=== PATIENT | male | born 1960 | race Caucasian/White ===

== ENCOUNTER 2016-09-15 16:46 | Inpatient (IN) ==
--- NOTE | 2016-09-15 17:44 | Emergency Department Note ---
Disposition Clinical Impression: Foreign body foot/toe, Elevated liver enzymes Cellulitis Qualifiers: Site of cellulitis: extremity Site of cellulitis of extremity: lower extremity Laterality: left Qualified Code(s): L03.116 - Cellulitis of left lower limb Disposition: Admitted As Inpatient General Adult [facility] - General Chief complaint: ED Extremity Injury, Lower Stated complaint: glass in L foot Time Seen by Provider: 09/15/16 17:42 Source: patient - History of Present Illness Pain Scale: 10 - Related Data Home Medications Medication Instructions Recorded Confirmed Armodafinil [Nuvigil] 250 mg PO QAM 07/26/16 07/26/16 Aspirin 81 mg PO DAILY 07/26/16 07/26/16 Gabapentin [Neurontin] 300 mg PO 1200 07/26/16 07/26/16 Gabapentin [Neurontin] 600 mg PO QAM AND QHS 07/26/16 07/26/16 Oxcarbazepine 300 mg PO DAILY 07/26/16 07/26/16 Venlafaxine XR (24 HR) [Effexor Xr] 150 mg PO DAILY 07/26/16 07/26/16 Previous Rx's Medication Instructions Recorded Albuterol Sulfate [Albuterol 1 puff IH Q6HR PRN #1 hfa.aer.ad 07/30/16 Inhaler] Benzonatate [Tessalon] 200 mg PO TID PRN #30 capsule 07/30/16 Cephalexin [Keflex] 500 mg PO TID #24 capsule 07/30/16 Docusate [Colace] 100 mg PO BID PRN #40 capsule 07/30/16 Nicotine Patch [Nicoderm] 21 mg TD DAILY #30 patch.td24 07/30/16 Oxycodone HCl/Acetaminophen 1 each PO Q6H PRN #28 tablet 07/30/16 [Percocet 10-325 mg Tablet] Allergies Allergy/AdvReac Type Severity Reaction Status Date / Time No Known Allergies Allergy Verified 09/15/16 16:55 Past Medical History - Past Medical History Medical history: Reports: arthritis, COPD, CVA, GERD, hyperlipidemia, hypertension, osteoporosis, TIA, other Surgical history: Reports: other (Esophagogastroduodenoscopy) Psychiatric history: Reports: no psych history, anxiety, depression, prior suicide attempt, previous psychiatric hospitalization, other - Social History Smoking Status: Current every day smoker Smokeless Tobacco Status: No Alcohol use: Reports: rarely Drug use: Reports: none Physical Exam - General General appearance: alert, in no apparent distress Course Vital Signs Temperature 97.7 F 09/15/16 16:52 Pulse Rate 83 09/15/16 16:52 Respiratory Rate 16 09/15/16 16:52 Blood Pressure 121/81 09/15/16 16:52 O2 Sat by Pulse Oximetry 100 09/15/16 16:52 Temperature 97.7 F 09/15/16 16:52 Pulse Rate 83 09/15/16 16:52 Respiratory Rate 16 09/15/16 16:52 Blood Pressure 121/81 09/15/16 16:52 O2 Sat by Pulse Oximetry 100 09/15/16 16:52 Oxygen Delivery Oxygen Delivery Room Air Medical Decision Making - Lab Data Result diagrams: 09/15/16 18:09 09/15/16 18:09 Lab Results 09/15/16 09/15/16 09/15/16 Range/Units 18:09 18:09 18:09 WBC 5.7 (4.3-11.1) K/mcL RBC 5.24 (4.19-5.50) M/mcL Hgb 15.3 (12.9-16.9) g/dL Hct 45.8 (37.5-50.1) % MCV 87.4 (83.0-100.0) fL MCH 29.2 (28.0-33.3) pg MCHC 33.4 (31.6-35.5) g/dL RDW 14.8 H (11.5-14.5) % Plt Count 166 (140-400) K/mcL MPV 10.2 (9.4-12.4) fL Immature Gran % 0.2 (0-4) % Seg Neutrophils % 75.4 % Lymphocytes % 14.3 % Monocytes % 9.1 % Eosinophils % 0.5 % Basophils % 0.5 % Neutrophils # 4.3 (1.6-8.9) K/mcL Lymphocytes # 0.8 (0.6-4.6) K/mcL Monocytes # 0.5 (0.0-1.3) K/mcL Eosinophils # 0.0 (0.0-0.6) K/mcL Basophils # 0.0 (0.0-0.2) K/mcL PT 13.3 H (9.4-12.1) Seconds INR 1.2 APTT 31.8 (26.0-36.0) Seconds Sodium 137 (136-145) mEq/L Potassium 3.7 (3.5-4.5) mEq/L Chloride 101 (98-109) mEq/L Carbon Dioxide 28 (19-29) mEq/L BUN 16 (8-26) mg/dL Creatinine 0.88 (0.72-1.25) mg/dL Est GFR ( Amer) > 60 (> 60) Est GFR (Non-Af Amer) > 60 (> 60) BUN/Creatinine Ratio 18 (6-26) Glucose 151 H (70-99) mg/dL Calculated Osmolality 288 (280-300) Calcium 8.9 (8.6-10.8) mg/dL Total Bilirubin 1.8 H (0.2-1.2) mg/dL AST 466 H (5-34) Units/L ALT 708 H (0-55) Units/L Alkaline Phosphatase 212 H (38-126) Units/L Serum Total Protein 7.4 (6.0-8.3) g/dL Albumin 3.7 (3.5-5.0) g/dL Globulin 3.7 H (2.4-3.5) g/dL Albumin/Globulin Ratio 1.0 L (1.1-2.2) Attestation Statement - Attestation Attestation: I examined this patient and my medical decision-making was reviewed with the [facility] STORAGE ARCHITECT/PA/Advanced Practice Nurse/Resident Physician. I agree with the documented findings, disposition and treatment plan as described except to the extent set forth below. [id number] time provided Patient presents in a wheelchair complaining of left foot pain and swelling. He states he underwent surgery to remove a foreign body on 07/28/16. He returns complaining of increased pain and swelling. Imaging study reveals a retained foreign body. Cellulitis on exam 18:59: I spoke with Dr. Mendez by telephone to process a consult after admission. Antibiotics started. Patient admitted to the medicine service. His liver function tests are elevated with the patient denies taking Tylenol. He denies right upper quadrant pain. He is not jaundiced. He denies alcohol ingestion. Labs can be trended and followed by the medicine team after admission
--- NOTE | 2016-09-15 18:06 | Emergency Department Note ---
Disposition Clinical Impression: Foreign body foot/toe Cellulitis Qualifiers: Site of cellulitis: extremity Site of cellulitis of extremity: lower extremity Laterality: left Qualified Code(s): L03.116 - Cellulitis of left lower limb Disposition: Admitted As Inpatient Lower Extremity Injury HPI - General Chief Complaint: ED Extremity Injury, Lower Stated Complaint: glass in L foot Time Seen by Provider: 09/15/16 17:42 Source: patient Nursing Notes Reviewed: Yes Vital Signs Reviewed: Yes - History of Present Illness HPI Narrative: Mr. Mason, a 56yo male, presents from home by POV with CC: left foot pain. Onset Friday. The swelling on the plantar surface of his left foot has progressed and become increasingly painful. Erythema has spread to now include majority of his forefoot. He admits to chills today. In July, patient stepped on a piece of glass was operated La[place] morning by Dr. vega. PMH: Hypertension, remote CVA with sequelae of left-sided weakness. Admits: Chills, leg pain, history taking from body left foot. Eyes: Fever, nausea, swelling or streaking of his left leg. - Related Data Home Medications Medication Instructions Recorded Confirmed Armodafinil [Nuvigil] 250 mg PO QAM 07/26/16 07/26/16 Aspirin 81 mg PO DAILY 07/26/16 07/26/16 Gabapentin [Neurontin] 300 mg PO 1200 07/26/16 07/26/16 Gabapentin [Neurontin] 600 mg PO QAM AND QHS 07/26/16 07/26/16 Oxcarbazepine 300 mg PO DAILY 07/26/16 07/26/16 Venlafaxine XR (24 HR) [Effexor Xr] 150 mg PO DAILY 07/26/16 07/26/16 Previous Rx's Medication Instructions Recorded Albuterol Sulfate [Albuterol 1 puff IH Q6HR PRN #1 hfa.aer.ad 07/30/16 Inhaler] Benzonatate [Tessalon] 200 mg PO TID PRN #30 capsule 07/30/16 Cephalexin [Keflex] 500 mg PO TID #24 capsule 07/30/16 Docusate [Colace] 100 mg PO BID PRN #40 capsule 07/30/16 Nicotine Patch [Nicoderm] 21 mg TD DAILY #30 patch.td24 07/30/16 Oxycodone HCl/Acetaminophen 1 each PO Q6H PRN #28 tablet 07/30/16 [Percocet 10-325 mg Tablet] Allergies Allergy/AdvReac Type Severity Reaction Status Date / Time No Known Allergies Allergy Verified 09/15/16 16:55 All systems ED: reviewed and negative except as stated. (as per HPI) Past Medical History - Past Medical History Medical history: Reports: arthritis, COPD, CVA, GERD, hyperlipidemia, hypertension, osteoporosis, TIA, other Surgical history: Reports: other (Esophagogastroduodenoscopy) Psychiatric history: Reports: no psych history, anxiety, depression, prior suicide attempt, previous psychiatric hospitalization, other - Social History Smoking Status: Current every day smoker Smokeless Tobacco Status: No Alcohol use: Reports: rarely Drug use: Reports: none Physical Exam General: Patient is alert, oriented, and in no acute distress. HEENT: No facial asymmetry. Head is normocephalic and atraumatic. Cardiovascular: Heart regular rate and rhythm without clicks, rubs, gallops, or murmurs. No JVD. PMI nondisplaced. Respiratory: Symmetric chest rise with good respiratory effort. Bilateral breath sounds are clear without wheezing, crackles, or rhonchi. Musculoskeletal: Left forefoot swollen on plantar surface with central pallor and surrounding erythema. Erythema extends to the dorsum of the forefoot. No streaking. Dorsalis pedis and posterior tibial pulse intact in the left foot. Psych: Patient's affect is appropriate for situation. - General General appearance: alert, in no apparent distress Course Course Narrative: Surgery performed Jul by Dr. Vega. Will request Xray and draw basic labs including coags. XRay left foot shows retained foreign body. 18:00 My attending spoke with Dr. Mendez. He agrees to see the patient as consult. 18:05 Spoke with the admitting hospitalist consult has already been placed for Dr. Mendez who anticipates operation tomorrow. We will begin empiric antibodies for gram-positive and Pseudomonas coverage Vital Signs Temperature 97.7 F 09/15/16 16:52 Pulse Rate 83 09/15/16 16:52 Respiratory Rate 16 09/15/16 16:52 Blood Pressure 121/81 09/15/16 16:52 O2 Sat by Pulse Oximetry 100 09/15/16 16:52 Temperature 97.7 F 09/15/16 16:52 Pulse Rate 83 09/15/16 16:52 Respiratory Rate 16 09/15/16 16:52 Blood Pressure 121/81 09/15/16 16:52 O2 Sat by Pulse Oximetry 100 09/15/16 16:52 Oxygen Delivery Oxygen Delivery Room Air Extremity Injury, Lower - Lab Data Result diagrams: 09/15/16 18:09 Lab Results 09/15/16 09/15/16 Range/Units 18:09 18:09 WBC 5.7 (4.3-11.1) K/mcL RBC 5.24 (4.19-5.50) M/mcL Hgb 15.3 (12.9-16.9) g/dL Hct 45.8 (37.5-50.1) % MCV 87.4 (83.0-100.0) fL MCH 29.2 (28.0-33.3) pg MCHC 33.4 (31.6-35.5) g/dL RDW 14.8 H (11.5-14.5) % Plt Count 166 (140-400) K/mcL MPV 10.2 (9.4-12.4) fL Immature Gran % 0.2 (0-4) % Seg Neutrophils % 75.4 % Lymphocytes % 14.3 % Monocytes % 9.1 % Eosinophils % 0.5 % Basophils % 0.5 % Neutrophils # 4.3 (1.6-8.9) K/mcL Lymphocytes # 0.8 (0.6-4.6) K/mcL Monocytes # 0.5 (0.0-1.3) K/mcL Eosinophils # 0.0 (0.0-0.6) K/mcL Basophils # 0.0 (0.0-0.2) K/mcL PT 13.3 H (9.4-12.1) Seconds INR 1.2 APTT 31.8 (26.0-36.0) Seconds
[2016-09-15] MEDS ORDERED: Vancomycin 1,000 MG in D5% in Water 250 ML IVPB ONE (18:14)
[2016-09-15 18:41] LABS: Basophils % 0.5 %; Eosinophils % 0.5 %; Hematocrit 45.8 % (37.5-50.1); Hemoglobin 15.3 g/dL (12.9-16.9); Immature Granulocytes % 0.2 % (0-4); Lymphocytes # 0.8 K/mcL (0.6-4.6); Lymphocytes % 14.3 %; Mean Corpuscular HGB Conc 33.4 g/dL (31.6-35.5); Mean Corpuscular Hemoglobin 29.2 pg (28.0-33.3); Mean Corpuscular Volume 87.4 fL (83.0-100.0); Mean Platelet Volume 10.2 fL (9.4-12.4); Monocytes # 0.5 K/mcL (0.0-1.3); Monocytes % 9.1 %; Neutrophils # 4.3 K/mcL (1.6-8.9); Platelet Count 166 K/mcL (140-400); Red Blood Count 5.24 M/mcL (4.19-5.50); Red Cell Distribution Width 14.8 % (11.5-14.5); Segmented Neutrophils % 75.4 %
[2016-09-15 18:46] LABS: INR 1.2; Prothrombin Time 13.3 Seconds (9.4-12.1)
[2016-09-15 18:49] LABS: Activated Partial Thrombo Time 31.8 Seconds (26.0-36.0)
[2016-09-15 18:57] LABS: Alanine Aminotransferase 708 Units/L (0-55); Albumin 3.7 g/dL (3.5-5.0); Alkaline Phosphatase 212 Units/L (38-126); Aspartate Amino Transferase 466 Units/L (5-34); BUN/Creatinine Ratio 18 (6-26); Bilirubin,Total 1.8 mg/dL (0.2-1.2); Blood Urea Nitrogen 16 mg/dL (8-26); Calcium 8.9 mg/dL (8.6-10.8); Carbon Dioxide 28 mEq/L (19-29); Chloride 101 mEq/L (98-109); Globulin 3.7 g/dL (2.4-3.5); Glucose 151 mg/dL (70-99); Osmolality,Calculated 288 (280-300); Potassium 3.7 mEq/L (3.5-4.5); Sodium 137 mEq/L (136-145); Total Protein 7.4 g/dL (6.0-8.3); eGFR For African Americans > 60 (> 60); eGFR For Non-African Americans > 60 (> 60)
[2016-09-15] MEDS ORDERED: Naloxone 0.4 MG/ML INJ IVP PRN (22:02)
[2016-09-15] MEDS ORDERED: Ondansetron 4 MG/2 ML VIAL IVP PRN (22:02)
[2016-09-15] MEDS ORDERED: Acetaminophen 325 MG TABLET PO PRN (22:02)
--- NOTE | 2016-09-15 22:28 | Internal Med History&Physical ---
<Yen Howe - Last Filed: 09/16/16 00:34> Date of Encounter: 09/16/16 Time of Encounter: 22:00 Assessment and Plan (1) Foreign body foot/toe Current visit: Yes Status: Acute 1 patient had previous foreign body in July surgical removal. Had uneventful postop recovery. Friday patient began to experience edema and erythema to left foot. He is unable to bear weight this time. X-rays left foot did reveal small radiopaque foreign body. Consulted podiatry he will surgically remove foreign body in a.m. 2. Antibiotic coverage patient given vancomycin as well as Zosyn. 3. After midnight for surgery in a.m. 4 morphine as needed for pain (2) Elevated liver enzymes Current visit: Yes Status: Acute 1 patient had elevated liver enzymes when reviewed. It appears that in July liver enzymes were within normal limits. Patient denies any history of cirrhosis or hepatitis. Denies any Tylenol use. States that he was on statin which he stopped taking. We will recheck LFTs in a.m. 2 obtain ultrasound of gallbladder and liver 3 hepatitis panel (3) DVT prophylaxis Current visit: No Status: Acute 1 Lovenox (4) History of CVA (cerebrovascular accident) Current visit: Yes Status: Acute 1 history of CVA with left-sided weakness. Patient states he is on aspirin every was stopped taking his statin. He has elevated liver enzymes will check lipid panel in a.m. continue to hold statin (5) JANNA on CPAP Current visit: Yes Status: Acute 1 we will continue with CPAP (6) Tobacco use Current visit: Yes Status: Acute 1. Patient stop smoking nicotine patch (7) Hypertension Current visit: Yes Status: Acute 1 BP presently controlled. We will monitor Qualifiers: Hypertension type: essential hypertension Qualified Code(s): I10 - Essential (primary) hypertension Internal Medicine - H&P: HPI Chief complaint: Swelling of left foot Admitted From: Emergency Dept Plans for Post Hospital Care: Home History of present illness: Mr. Mason is a 56 year old male past medical history of hypertension and CVA with left-sided weakness hypertension and JANNA hyperlipidemia tobacco abuse. According the patient in July he stepped on a piece of glass was operated on 07/28/[address] torres. Formerly was removed his recovery was uneventful. This Friday the patient noted swelling the plantar surface of his left foot and it progressively worsened and became increasingly painful. He did not been able to her weight on his left leg he attempted to soak his foot in Epsom salt with relief. Erythema has spread over majority of his forefoot and had become increasingly edematous. He did experience some chills today however denies any fever or shortness of breath cough or chest pain nausea vomiting or diarrhea. He presented to the ER with the above complaints. According to ER records patient's lab workup negative for leukocytosis chemistry is unremarkable. It is noted that patient had an elevated AST of 466 AL T708 total bilirubin 1.8 alkaline phosphatase 212. This this elevation seems to be new as lab work 07/26 2016 revealed normal levels. Patient denies any history of Tylenol consumption he is not taking a statin denies any history of cirrhosis or hepatitis. X-ray of left foot revealed a small radiopaque foreign body in soft tissue plantar. ER physician contacted podiatry Dr. Mendez who agreed to see patient as a consult. The patient was given empiric antibiotics vancomycin and cefepime in the ER. He is admitted for further workup and evaluation. At present time the patient denies any pain or discomfort. he is hemodynamically stable.. I reviewed this case with who agrees with plan Past Med Surg Social Fam HX - Past Medical History Medical history: arthritis, COPD, CVA, GERD, hyperlipidemia, hypertension, kidney stones, osteoporosis, TIA, other Psychiatric history: no psych history, anxiety, depression, prior suicide attempt, previous psychiatric hospitalization, other - Past Surgical History Surgical History: other - Social History Smoking Status: Current every day smoker Packs per day: 1/2 Smokeless Tobacco Status: No Alcohol use: rarely Drug use: none - Family History Mother Living Status: Hx Family Cardiac Disorders: Yes Brother Living Status: Still Living Hx Family Cancer: Yes Internal Medicine - H&P: Meds Aspirin 81 mg PO DAILY 07/26/16 [History] Gabapentin [Neurontin] 300 mg PO 1200 07/26/16 [History] Gabapentin [Neurontin] 600 mg PO QAM AND QHS 07/26/16 [History] Venlafaxine XR (24 HR) [Effexor Xr] 150 mg PO DAILY 07/26/16 [History] Nicotine Patch [Nicoderm] 21 mg TD DAILY #30 patch.td24 07/30/16 [Rx] Allergies No Known Allergies Allergy (Verified 09/15/16 16:55) All Systems PM: A 10-system review of systems was performed and is negative for pertinent findings except as documented above in the HPI. - Constitutional Constitutional: no chills, no fever(s), no night sweats - EENT Eyes: no change in vision, no discharge, no pain, no photophobia - Cardiovascular Cardiovascular ROS IM: no chest pain, no diaphoresis, no dyspnea, no lightheadedness, no palpitations, no syncope - Respiratory Respiratory: no cough, no dyspnea, no wheezing, no excessive phlegm production - Gastrointestinal Gastrointestinal: no abdominal pain, no diarrhea, no hematemesis, no hematochezia, no melena, no nausea, no vomiting - Musculoskeletal Additional comments: Swelling erythremia to left foot - Integumentary Integumentary IM: erythema - Neurological Neurological ROS: no confusion, no convulsions, no focal weakness, no numbness, no tingling, no tremor(s) - Constitutional Vitals: Temp Pulse Resp BP Pulse Ox 98.5 F 81 16 110/77 97 09/15/16 20:03 09/15/16 20:03 09/15/16 20:03 09/15/16 20:03 09/15/16 20:03 General appearance: Present: A&O X 3 - Head Head exam: Present: atraumatic, normocephalic - Eye Eye exam: Present: PERRL, conjuntiva pink, sclera anicteric Pupils: Present: PERRL - Neck Neck exam general surgery: Present: supple, trachea midline. Absent: lymphadenopathy - Respiratory Respiratory exam: Present: CTAB. Absent: accessory muscle use, rales, rhonchi, wheezes - Cardiovascular Cardiovascular exam: Present: RRR, +S1, +S2. Absent: diastolic murmur, gallop, rubs, systolic murmur - GI/Abdominal GI/Abdominal exam: Present: normal bowel sounds, soft, no peritoneal signs. Absent: distended, tenderness - Extremities Exam Extremities exam: Present: warm, radial pulses palpable and symetrical. Absent : calf tenderness, cyanotic, pedal edema - Expanded Lower Extremities Exam Foot/Toe exam: Present: erythema, puncture wound, swelling, tenderness - Neurological Exam Neurological exam: Present: CN II-XII intact, oriented X3, no focal deficits. Absent: pronater drift, facial droop, speech deficit - Skin Skin exam: Present: dry, intact Internal Med - H&P Results - Labs CBC & Chem 7: 09/15/16 18:09 09/15/16 18:09 - Diagnostic Studies Other Images Additional comments: Per radiology read left foot x-ray. Redemonstration small 4 mm radio opaque foreign body in the soft tissue plantar to the second proximal phalanx No acute osseous abnormality <Susan Helton - Last Filed: 09/16/16 02:18> Date of Encounter: 09/15/16 Internal Medicine - H&P: HPI History of present illness: Mr. Mason is a 56 year old male All Systems PM: A 10-system review of systems was performed and is negative for pertinent findings except as documented above in the HPI. - Constitutional Vitals: Temp Pulse Resp BP Pulse Ox 98.4 F 91 18 98/49 93 L 09/16/16 00:05 09/16/16 00:05 09/16/16 00:05 09/16/16 00:05 09/16/16 00:05 Internal Med - H&P Results - Labs CBC & Chem 7: 09/15/16 18:09 09/15/16 18:09 - Attending Attestation I examined this patient and my medical decision-making was reviewed with the MANAGING EDITOR/PA/Advanced Practice Nurse/Resident Physician. I agree with the documented findings, disposition and treatment plan as described except to the extent set forth below. 56 Y/M with h/o hypertension and CVA with left-sided weakness. He apparently stepped on a piece of glass in July 2016 and was operated on. He presents to emergency department with 2 day history of pain and worsening swelling of the left foot. X-Ray of the left foot showed 4 mm radiopaque foreign body in the soft tissues plantar to the second proximal phalanx. On clinical exam, has significant swelling on the plantar aspect of left foot at the level of 2 4 metatarsals / proximal phalanges. Mild erythema present. A/P: Foreign body in the left foot with possible abscess versus granuloma. ER provider discussed with Crystal Gazer and started on antibiotics continue. Podiatry to evaluate the pt. Abnormal LFTs: secondary to medications versus hepatitis. Check acetaminophen levels; GB ultrasound / liver ultrasound, hepatitis screen
[2016-09-15] MEDS: 0.9 % Sodium Chloride 1,000 ML IVC SCH (23:44)
[2016-09-16] MEDS: Vancomycin 1,500 MG in D5% in Water 250 ML IVPB SCH ×2 (05:18→17:56)
[2016-09-16 05:24] LABS: Basophils % 0.2 %; Eosinophils # 0.1 K/mcL (0.0-0.6); Eosinophils % 1.6 %; Hematocrit 40.8 % (37.5-50.1); Immature Granulocytes % 0.2 % (0-4); Lymphocytes # 0.7 K/mcL (0.6-4.6); Lymphocytes % 16.8 %; Mean Corpuscular HGB Conc 33.6 g/dL (31.6-35.5); Mean Corpuscular Hemoglobin 29.3 pg (28.0-33.3); Mean Corpuscular Volume 87.4 fL (83.0-100.0); Monocytes # 0.6 K/mcL (0.0-1.3); Monocytes % 14.1 %; Platelet Count 146 K/mcL (140-400); Red Blood Count 4.67 M/mcL (4.19-5.50); Red Cell Distribution Width 14.6 % (11.5-14.5); Segmented Neutrophils % 67.1 %
[2016-09-16 05:28] LABS: Hemoglobin 13.7 g/dL (12.9-16.9)
[2016-09-16 05:40] LABS: Alanine Aminotransferase 528 Units/L (0-55); Albumin/Globulin Ratio 0.9 (1.1-2.2); Alkaline Phosphatase 193 Units/L (38-126); Aspartate Amino Transferase 361 Units/L (5-34); BUN/Creatinine Ratio 20 (6-26); Bilirubin,Direct 0.8 mg/dL (0.0-0.5); Bilirubin,Indirect 0.5 mg/dL (0.0-1.2); Bilirubin,Total 1.3 mg/dL (0.2-1.2); Blood Urea Nitrogen 16 mg/dL (8-26); Calcium 8.4 mg/dL (8.6-10.8); Carbon Dioxide 24 mEq/L (19-29); Chloride 106 mEq/L (98-109); Glucose 110 mg/dL (70-99); Osmolality,Calculated 286 (280-300); Potassium 3.8 mEq/L (3.5-4.5); Sodium 137 mEq/L (136-145); eGFR For African Americans > 60 (> 60); eGFR For Non-African Americans > 60 (> 60)
[2016-09-16 05:44] LABS: Platelet Estimate Decreased (Normal)
[2016-09-16 05:45] LABS: Reactive Lymphocytes Present (Not Present)
[2016-09-16 05:51] LABS: Albumin 2.8 g/dL (3.5-5.0); Total Protein 5.8 g/dL (6.0-8.3)
[2016-09-16] MEDS: Aspirin 81 MG TAB.CHEW PO SCH (07:35)
[2016-09-16] MEDS: Venlafaxine XR (24 HR) 150 MG CAP.ER.24H PO SCH (07:35)
[2016-09-16] MEDS: Gabapentin 300 MG CAPSULE PO SCH ×3 (07:35→21:36)
[2016-09-16] MEDS ORDERED: Vancomycin (wt based) 1,000 MG VIAL IVPB SCH (09:00)
[2016-09-16] MEDS: Piperacillin/Tazobactam 3.375 GM in D5% in Water (Mini-Bag+) 100 ML IVPB SCH ×2 (10:48→17:48)
[2016-09-16] MEDS: Nicotine 21 MG PATCH.TD24 TD SCH (10:48)
[2016-09-16 13:22] LABS: Hepatitis A Antibody IgM Nonreactive (Nonreactive); Hepatitis B Core IgM Nonreactive (Nonreactive); Hepatitis B Surface Antigen Nonreactive (Nonreactive)
--- NOTE | 2016-09-16 13:57 | Podiatry Consult Note ---
Date of Encounter: 09/16/16 Time of Encounter: 12:55 Assessment and Plan (1) Retained foreign body fragment Current visit: No Status: Acute The patient was instructed that the foreign body reaction versus possible infection is causing the pain. The patient was instructed that surgical intervention would likely be most beneficial in this scenario. The patient was instructed that we could perform surgery today. The patient was agreeable and wishes to proceed with surgery. Patient was informed of the risks and complications of surgery. These may include but are not limited to the following ; nerve damage, numbness, tingling, RSD/CRPS, loss of motor function, loss of toe, loss of limb, loss of life, ischemia, wound healing issues, infection, scarring, keloid formation, continued pain, arthritis, non-union, mal-union, prominent hardware, displaced hardware, reaction to hardware, the need to remove hardware, bruising, continued limp, the need for future surgery, over correction, under correction, chronic swelling, the need for physical therapy, stiffness of joints, ulceration, slow healing, wound dehiscence, reaction to implant, reaction to sutures. The patient was informed of the possible conservative treatments available which may include but are not limited to the following: Orthotics, bracing, non -weight bearing, physical therapy, padding, taping, steroid injections, NSAIDS, casting. The patient was given the option to seek a second opinion. It was explained that surgery is an art and not an exact science therefore results cannot be guaranteed. All the patients questions and concerns were addressed. Patient agrees to have the surgery despite the possible risks and complications. Absolutely no guarantees were given or implied. History of Present Illness Chief complaint: Foreign body HPI: Mr. Mason is a 56 year old male relates significant pain due to a foreign object in his left foot. Patient denies any recent new injuries. Patient relates that over time his foot began to get more swollen and painful over the last week. Past Med Surg Social Fam HX - Past Medical History Medical history: arthritis, COPD, CVA, GERD, hyperlipidemia, hypertension, kidney stones, osteoporosis, TIA, other Psychiatric history: no psych history, anxiety, depression, prior suicide attempt, previous psychiatric hospitalization, other - Past Surgical History Surgical History: other - Social History Smoking Status: Current every day smoker Packs per day: 1/2 Smokeless Tobacco Status: No Alcohol use: rarely Drug use: none - Family History Mother Living Status: Hx Family Cardiac Disorders: Yes Brother Living Status: Still Living Hx Family Cancer: Yes Medications and Allergies Aspirin 81 mg PO DAILY 07/26/16 [History] Gabapentin [Neurontin] 300 mg PO 1200 07/26/16 [History] Gabapentin [Neurontin] 600 mg PO QAM AND QHS 07/26/16 [History] Venlafaxine XR (24 HR) [Effexor Xr] 150 mg PO DAILY 07/26/16 [History] Nicotine Patch [Nicoderm] 21 mg TD DAILY #30 patch.td24 07/30/16 [Rx] Allergies No Known Allergies Allergy (Verified 09/15/16 16:55) All Systems Reviewed: A 10-system review of systems was performed and is negative for pertinent findings except as documented above in the HPI. Physical Exam - Constitutional Vitals: Temp Pulse Resp BP Pulse Ox 97.8 F 70 18 102/68 95 09/16/16 12:00 09/16/16 12:00 09/16/16 12:00 09/16/16 12:00 09/16/16 12:00 Exam: The patient is awake, alert, and oriented 3. Pedal pulses are palpable and capillary fill time is intact to digits 1 through 5 bilaterally. Mild edema noted to the left lower extremity. On the plantar aspect of the left forefoot there is noted to be a small open lesion with irritation consistent with a foreign body reaction versus possible infection. Pain with palpation to the site. No other open lesions, abrasions, or ulcerations noted. Decreased sensation noted consistent with peripheral neuropathy. Radiology-foreign body noted. Results - Labs Result Diagrams: 09/16/16 05:06 09/16/16 05:06 Labs: Abnormal lab results RDW 14.6 % (11.5-14.5) H 09/16/16 05:06 Reactive Lymphocytes Present (Not Present) A 09/16/16 05:06 Platelet Estimate Decreased (Normal) L 09/16/16 05:06 PT 13.3 Seconds (9.4-12.1) H 09/15/16 18:09 Glucose 110 mg/dL (70-99) H 09/16/16 05:06 Calcium 8.4 mg/dL (8.6-10.8) L 09/16/16 05:06 Total Bilirubin 1.3 mg/dL (0.2-1.2) H 09/16/16 05:06 Direct Bilirubin 0.8 mg/dL (0.0-0.5) H 09/16/16 05:06 AST 361 Units/L (5-34) H 09/16/16 05:06 ALT 528 Units/L (0-55) H 09/16/16 05:06 Alkaline Phosphatase 193 Units/L (38-126) H 09/16/16 05:06 Serum Total Protein 5.8 g/dL (6.0-8.3) L D 09/16/16 05:06 Albumin 2.8 g/dL (3.5-5.0) L D 09/16/16 05:06 Albumin/Globulin Ratio 0.9 (1.1-2.2) L 09/16/16 05:06 Acetaminophen < 1.0 mcg/mL (10-30) L 09/16/16 05:06 H & H 09/16/16 Range/Units 05:06 Hgb 13.7 D (12.9-16.9) g/dL Hct 40.8 (37.5-50.1) % All other labs normal. Consult Discharge Plan - Plan Referrals: Mamadou Keyes, PAC [Primary Care Provider] -
--- NOTE | 2016-09-16 14:19 | Anesthesia Evaluation PreOp ---
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 Hx of psychiatric hospitalization and prior suicide attempt) Other Medical History: Renal (Hx of kidney stones), GERD Anesthesia History: Past Anesthesia Alcohol Use: rarely Drug use: none Medications and Allergies Aspirin 81 mg PO DAILY 07/26/16 [History] Gabapentin [Neurontin] 300 mg PO 1200 07/26/16 [History] Gabapentin [Neurontin] 600 mg PO QAM AND QHS 07/26/16 [History] Venlafaxine XR (24 HR) [Effexor Xr] 150 mg PO DAILY 07/26/16 [History] Nicotine Patch [Nicoderm] 21 mg TD DAILY #30 patch.td24 07/30/16 [Rx] Allergies No Known Allergies Allergy (Verified 09/15/16 16:55) - Meds/Allergy Pre-op Review Medications Reviewed: Yes Allergies Reviewed: Yes Beta Blockers on Current Med List: No Anesthesia Results - Labs 09/16/16 05:06 09/16/16 05:06 Laboratory Tests 07/27/16 09/15/16 09/16/16 05:26 18:09 05:06 WBC 4.4 Hgb 13.7 D Hct 40.8 Plt Count 146 PT 13.3 H INR 1.2 APTT 31.8 Sodium Potassium Chloride Carbon Dioxide BUN Est GFR (Non-Af Amer) Glucose Est Mean Plasma Glucose 97 Hemoglobin A1c 5.0 09/16/16 05:06 WBC Hgb Hct Plt Count PT INR APTT Sodium 137 Potassium 3.8 Chloride 106 Carbon Dioxide 24 BUN 16 Est GFR (Non-Af Amer) > 60 Glucose 110 H Est Mean Plasma Glucose Hemoglobin A1c - Imaging EKG: image reviewed (66bpm SR) Anesthesia Exam Vital Signs Temp Pulse Resp BP Pulse Ox 09/16/16 12:00 97.8 F 70 18 102/68 95 09/16/16 10:42 98.3 F 70 16 95/62 93 L 09/16/16 08:20 98 F 68 18 95/60 95 09/16/16 06:45 98.2 F 75 16 103/68 95 09/16/16 04:50 98.4 F 77 15 91/61 95 09/16/16 00:05 98.4 F 91 18 98/49 93 L 09/15/16 22:04 93 L 09/15/16 20:03 98.5 F 81 16 110/77 97 09/15/16 16:52 97.7 F 83 16 121/81 100 Intake and Output 09/15/16 09/16/16 09/16/16 23:59 07:59 15:59 Intake Total 350 / 350 250 / 250 Output Total 200 / 200 Balance 350 / 350 50 / 50 Intake: IV Fluids 350 / 350 250 / 250 Maxipime 1,000 MG In 100 / 100 Dextrose 5% (Minibag+) 100 ML 100 ML @ 200 mls/ hr IVPB ONCE ONE Rx#: [id number] Vancocin 1,000 MG In 250 / 250 Dextrose 5% 250 ML @ 167 mls/hr IVPB ONCE ONE Rx#: [id number] Vancocin 1,500 MG In 250 / 250 Dextrose 5% 250 ML @ 166. 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 Motor: Normal RUE, Normal RLE, Normal Face, Deficit LUE, Deficit LLE PAPER BALING MACHINE OPERATOR Sensory: Normal: RUE, RLE, Face, Deficit: LUE, LLE - Cardiac Rhythm: Regular Murmur: None - Pulmonary Breath Sounds: bilateral Clear Respiratory Effort: Symmetrical Anesthesia Assess/Plan ASA Score: 3 (Smoker, CVA, HTN, Chol, Anxiety/Depression) Modified Ta Scale for Level of Consciousness: Cooperative, oriented, and tranquil Anesthetic Plan: General Monitoring Plan: Standard Monitors Recovery Plan: PACU Anes Supervising Prov Stmt: PT seen/evaluated, R&B discussed and questions answered and consent obtained. Carmen Jordan MD
[2016-09-16] MEDS ORDERED: Bupivacaine/Clonidine Syringe 1 EACH SYRINGE ONE (15:04)
[2016-09-16] MEDS ORDERED: *HR* Propofol 200 MG/20 ML VIAL IVP ONE ×3 (15:05→16:00)
[2016-09-16] MEDS ORDERED: Lidocaine -MPF 2% 2 ML VIAL ONE (15:05)
[2016-09-16] MEDS ORDERED: *HR* Midazolam HCl 2 MG/2 ML VIAL ONE (15:05)
[2016-09-16] MEDS ORDERED: *HR* FentaNYL (PF) 100 MCG/2 ML VIAL ONE (15:05)
[2016-09-16] MEDS ORDERED: *HR* Midazolam HCl 5 MG/5 ML VIAL IVP ONE (15:32)
[2016-09-16 16:09] LABS: Hepatitis C Virus Antibody Reactive (Nonreactive)
--- NOTE | 2016-09-16 16:44 | Internal Med Progress Note ---
Date of Encounter: 09/16/16 Time of Encounter: 13:30 - Assessment and plan (1) Retained foreign body fragment Current Visit: No Status: Acute Assessment and plan: Podiatry consultation appreciated Scheduled for surgery today (2) Elevated liver enzymes Current Visit: Yes Status: Acute Assessment and plan: US gall bladder shows common bile duct is upper limits of normal in caliber measuring 6 mm. Correlation for the possibility of biliary obstruction is recommended f/u HIDA scan F/U GI consultation IV fluids monitor LFTs clear liquid diet f/u hepatitis serologies (3) History of CVA (cerebrovascular accident) Current Visit: Yes Status: Chronic Assessment and plan: continue home medications (4) JANNA on CPAP Current Visit: Yes Status: Acute Assessment and plan: CPAP at bedtime (5) Tobacco use Current Visit: Yes Status: Acute Assessment and plan: smoking cessation counseling provided patient not ready to quit at this time nicotine replacement therapy provided (6) DVT prophylaxis Current Visit: No Status: Acute Assessment and plan: Lovenox SQ (7) Hypertension Current Visit: No Status: Chronic Assessment and plan: BP within acceptable range HOld antihypertensive meds given the current BP readings IV fluids continue to monitor Qualifiers: Hypertension type: essential hypertension Qualified Code(s): I10 - Essential (primary) hypertension - Subjective Interval history: patient seen and examined at bedside. Resting in bed and denies any pain at this time. Reports of being scheduled for surgery later on today. - Constitutional Vitals: Temp Pulse Resp BP Pulse Ox 97.8 F 70 18 102/68 95 09/16/16 12:00 09/16/16 12:00 09/16/16 12:00 09/16/16 12:00 09/16/16 12:00 General appearance: Present: A&O X 3, no acute distress, obese - Head Head exam: Present: atraumatic, normocephalic - Eye Eye exam: Present: conjuntiva pink, sclera anicteric - Respiratory Respiratory exam: Present: CTAB. Absent: respiratory distress, wheezes - Cardiovascular Cardiovascular exam: Present: RRR, +S1, +S2 - GI/Abdominal GI/Abdominal exam: Present: normal bowel sounds, soft. Absent: distended, tenderness - Extremities Exam Extremities exam: Present: warm, radial pulses palpable and symetrical - Neurological Exam Neurological exam: Present: alert, oriented X3 - Psychiatric Psychiatric exam: Present: normal affect, normal mood Internal Medicine: Result - Labs CBC & Chem 7: 09/16/16 05:06 09/16/16 05:06 Labs: Short CBC 09/16/16 Range/Units 05:06 WBC 4.4 (4.3-11.1) K/mcL Hgb 13.7 D (12.9-16.9) g/dL Hct 40.8 (37.5-50.1) % Plt Count 146 (140-400) K/mcL Neutrophils # 3.0 (1.6-8.9) K/mcL BMP 09/16/16 05:06 Sodium 137 Potassium 3.8 Chloride 106 Carbon Dioxide 24 BUN 16 Creatinine 0.82 Glucose 110 H Calcium 8.4 L Liver Function 09/16/16 Range/Units 05:06 Total Bilirubin 1.3 H (0.2-1.2) mg/dL Direct Bilirubin 0.8 H (0.0-0.5) mg/dL AST 361 H (5-34) Units/L ALT 528 H (0-55) Units/L Alkaline Phosphatase 193 H (38-126) Units/L Albumin 2.8 L D (3.5-5.0) g/dL - ABG Interpretation ABG results: PT/INR, D-dimer PT 13.3 Seconds (9.4-12.1) H 09/15/16 18:09 - Impressions Impressions Gallbladder Ultrasound 09/16/16 09:00 IMPRESSION: Common bile duct is upper limits of normal in caliber measuring 6 mm. Correlation for the possibility of biliary obstruction is recommended. D/ / Trixie Davis Cha, MD / Trixie Davis Cha, MD Interpreting Provider: Trixie Davis Cha, MD Fluoroscopy 09/16/16 16:00 IMPRESSION: Intraprocedural fluoroscopic spot images as above. See separate procedure report for more information. D/ / Celestino Delacruz MD / Celestino Delacruz MD Interpreting Provider: Celestino Delacruz MD Foot X-Ray 09/16/16 16:00 IMPRESSION: Intraprocedural fluoroscopic spot images as above. See separate procedure report for more information. D/ / Celestino Delacruz MD / Celestino Delacruz MD Interpreting Provider: Celestino Delacruz MD Consult Discharge Plan - Plan Referrals: Mamadou Keyes, PAC [Primary Care Provider] -
[2016-09-16] MEDS: 0.9 % Sodium Chloride 1,000 ML IVC SCH (17:45)
[2016-09-16] MEDS ORDERED: Cefepime HCl 1,000 MG in D5% in Water (Mini-Bag+) 100 ML IVPB ONE (18:15)
[2016-09-16] MEDS: *HR* Enoxaparin 40 MG/0.4 ML SYRINGE SQ SCH (19:06)
--- NOTE | 2016-09-16 21:23 | Operative Note ---
Date of procedure: 09/16/16 Pre-op diagnosis: Soft tissue abscess left foot, retained foreign body left foot Post-op diagnosis: same Procedure: Excision of ulceration left foot. Incision and drainage of abscess left foot. Removal of foreign body left foot. Implants: None Complications: None Anesthesia: MAC Surgeon: Floyd Vega Estimated blood loss (cc): 3 Specimen: Cultures obtained from abscess Condition: stable Disposition: PACU Procedure in Detail: Patient was transported to the operating room and placed on the table in the supine position. Following anesthesia the site was localized with a Marcaine clonidine mix. The foot was then scrubbed prepped and draped in the usual aseptic fashion. A timeout was performed. The small 2 mm x 2 mm ulceration on the plantar aspect of the left foot third metatarsal head was excised and slightly deeper dissection was performed through the layers of subcutaneous tissue and a deep abscess was noted. The deep abscess was drained. The foreign body was noted to be in a different location from the abscess. It is likely that the foreign body did not cause the abscess and that the abscess is related to the small ulceration on the plantar aspect of the third metatarsal head. After the site was adequately irrigated the attention was then directed to the plantar aspect of the second metatarsal head/metatarsal phalangeal joint where the foreign body was located. A separate incision was made and the small foreign body was removed without incident. The foreign body was noted to be encapsulated in adipose tissue and had no signs of infection in that location. All sites were pulse irrigated with saline and closed utilizing 3-0 nylon. The site of the abscess was closed loosely to allow for additional drainage if needed. A dry sterile dressing was applied. The patient tolerated the procedure and anesthesia well and was transported to the recovery room with vital signs stable and vascular status intact to both fee. The patient will be readmitted to the floor. Patient will continue on his previous antibiotics. I feel as though it would be fine to discharge the patient on empiric antibiotics until the cultures come back. Due to the small size of the abscess I feel as though PO antibiotics would be sufficient for discharge. If the patient is having other issues we will continue IV antibiotics until his discharge. The patient will need to minimize his weight placed on the forefoot. The patient may require a walker for assistance to decrease the pressure on his left forefoot. Daily dressing changes will be beneficial. If the patient has difficulty performing the daily dressing changes on his own he can follow up weekly in my clinic for changes.
[2016-09-17] MEDS: Piperacillin/Tazobactam 3.375 GM in D5% in Water (Mini-Bag+) 100 ML IVPB SCH ×3 (00:08→17:15)
[2016-09-17] MEDS: Vancomycin 1,500 MG in D5% in Water 250 ML IVPB SCH ×2 (05:37→17:15)
[2016-09-17 07:04] LABS: Basophils % 0.7 %; Eosinophils # 0.1 K/mcL (0.0-0.6); Hematocrit 40.8 % (37.5-50.1); Hemoglobin 13.5 g/dL (12.9-16.9); Immature Granulocytes % 0.2 % (0-4); Lymphocytes # 0.9 K/mcL (0.6-4.6); Lymphocytes % 21.2 %; Mean Corpuscular HGB Conc 33.1 g/dL (31.6-35.5); Mean Corpuscular Hemoglobin 29.1 pg (28.0-33.3); Mean Corpuscular Volume 87.9 fL (83.0-100.0); Mean Platelet Volume 10.5 fL (9.4-12.4); Monocytes # 0.6 K/mcL (0.0-1.3); Monocytes % 13.2 %; Neutrophils # 2.7 K/mcL (1.6-8.9); Platelet Count 163 K/mcL (140-400); Red Blood Count 4.64 M/mcL (4.19-5.50); Red Cell Distribution Width 14.6 % (11.5-14.5); Segmented Neutrophils % 61.7 %
[2016-09-17 07:22] LABS: Alanine Aminotransferase 536 Units/L (0-55); Albumin 2.6 g/dL (3.5-5.0); Albumin/Globulin Ratio 0.8 (1.1-2.2); Alkaline Phosphatase 191 Units/L (38-126); Aspartate Amino Transferase 453 Units/L (5-34); BUN/Creatinine Ratio 8 (6-26); Bilirubin,Total 1.7 mg/dL (0.2-1.2); Blood Urea Nitrogen 7 mg/dL (8-26); Calcium 8.4 mg/dL (8.6-10.8); Carbon Dioxide 25 mEq/L (19-29); Chloride 107 mEq/L (98-109); Globulin 3.1 g/dL (2.4-3.5); Glucose 104 mg/dL (70-99); Magnesium 1.9 mg/dL (1.6-2.6); Osmolality,Calculated 282 (280-300); Potassium 4.2 mEq/L (3.5-4.5); Sodium 137 mEq/L (136-145); Total Protein 5.7 g/dL (6.0-8.3); eGFR For African Americans > 60 (> 60); eGFR For Non-African Americans > 60 (> 60)
[2016-09-17 07:54] LABS: Reactive Lymphocytes Present (Not Present)
[2016-09-17 07:55] LABS: Platelet Estimate Normal (Normal)
--- NOTE | 2016-09-17 08:43 | Gastroenterology Consult Note ---
<Savanna Quispe - Last Filed: 09/17/16 11:14> Date of Encounter: 09/17/16 Time of Encounter: 10:25 - Assessment and plan (1) Positive hepatitis C antibody test Current Visit: Yes Status: Acute Assessment and plan: confirmatory testing ordered. (2) Elevated liver enzymes Current Visit: Yes Status: Acute Assessment and plan: Trending lower, but remain quite elevated. US liver wnl. R/O dili, etoh abuse/ use, risk factors for Hep C. HIDA shows blockage in cystic duct. MRCP ordered. - Time Spent With Patient Total time spent is greater than 50% in coordination of care (as documented) at patient's floor/unit and/or counseling patient: less than 15 minutes GI History of Present Illness - Data of Consult Patient: new to practice Consult date: 09/17/16 Requesting Physician: Dianne Adkins MD - Consult Narrative Reason for consult: elevated lfts, + Hep C screen History of present illness: Mr. Mason is a 56 year old male with a PMH of HTN, CVA with L sided residual, HTN, JANNA on CPAP, HLD and tobacco abuse. Per the medical chart, in July,, the patient stepped on a piece of glass requiring an operation on [address] Vega. Glass was successfully removed, his recovery was uneventful. Last Friday the patient noted swelling on the plantar surface of his left foot and it progressively worsened and became increasingly painful. He became unable to bear weight on his left leg. He attempted to soak his foot in Epsom salt without relief. Erythema has spread over majority of his forefoot and had become increasingly edematous. He did experience some chills today however denies any fever or shortness of breath cough or chest pain nausea vomiting or diarrhea. He presented to the ER with the above complaints. According to ER records patient's lab workup negative for leukocytosis chemistry is unremarkable. It is noted that patient had an elevated AST of 466 AL T708 total bilirubin 1.8 alkaline phosphatase 212. This this elevation seems to be new as lab work 07/26 2016 revealed normal levels. Patient denies any history of Tylenol consumption he is not taking a statin denies any history of cirrhosis or hepatitis. X-ray of left foot revealed a small radiopaque foreign body in soft tissue plantar. The patient was given empiric antibiotics vancomycin and cefepime in the ER. Patient denies etoh history or current etoh use. He denies IVDU or intranasal drug use. no tattoos. Not aware of a prior blood transfusion or positive history of sexual relations with an infected person. He has dysphagia with both solids/liquids since his CVAs. BM regular, no black or blood noted in stools. Remote history of both EGD/Colon, > 10 years ago. Family hx of colon cancer in his father. Colonoscopy: >10 years, results unk EGD: >10 years, results unk Past Med Surg Social Fam HX - Past Medical History Medical history: arthritis, COPD, CVA, GERD, hyperlipidemia, hypertension, kidney stones, osteoporosis, TIA, other Psychiatric history: no psych history, anxiety, depression, prior suicide attempt, previous psychiatric hospitalization, other - Past Surgical History Surgical History: other - Social History Smoking Status: Current every day smoker Packs per day: 1/2 Smokeless Tobacco Status: No Alcohol use: rarely Drug use: none - Family History Mother Living Status: Hx Family Cardiac Disorders: Yes Brother Living Status: Still Living Hx Family Cancer: Yes - Gastrointestinal NSAID use: Alleve Anticoagulation Use: lovenox Number of BM Per Day: 1 - Constitutional Constitutional: as per HPI - EENT Eyes: as per HPI Ears: Present: as per HPI Nose, mouth and throat: Present: dysphagia - Cardiovascular Cardiovascular ROS: Present: as per HPI - Respiratory Respiratory IM: Present: as per HPI - Neurological ROS Neurological GI: Present: as per HPI - Hematologic/Lymphatic Hematologic/Lymphatic pediatric: Present: as per HPI - Musculoskeletal Musculoskeletal ROS GI: Present: other Additional Comment: L foot - Integumentary Integumentary GI: Present: as per HPI - Endocrine Endocrine IM: Present: as per HPI - Constitutional Vitals: Temp Pulse Resp BP Pulse Ox 99.0 F 76 18 103/68 93 L 09/17/16 06:43 09/17/16 06:43 09/17/16 06:43 09/17/16 06:43 09/17/16 06:43 General appearance: Present: cooperative, A&O X 3, no acute distress, answers questions appropriately - Head Head exam: Present: atraumatic, normocephalic - Eye Eye exam: Present: normal appearance, sclera anicteric - ENT ENT exam: Present: mucous membranes moist - Neck Neck exam general surgery: Present: normal inspection, trachea midline - Respiratory Respiratory exam: Present: CTAB - Cardiovascular Cardiovascular exam: Present: RRR, +S1, +S2 - GI/Abdominal GI/Abdominal exam: Present: normal bowel sounds, soft, no peritoneal signs - Rectal Rectal exam: Present: deferred - Extremities Exam Additional comments: L foot bandaged. - Neurological Exam Neurological exam: Present: no focal deficits - Psychiatric Psychiatric exam: Present: normal affect, normal mood - Skin Skin exam: Present: dry, intact, normal color, warm Results - Labs CBC & Chem 7: 09/17/16 06:44 09/17/16 06:44 Labs: Last Result Calcium 8.4 mg/dL (8.6-10.8) L 09/17/16 06:44 Entire Visit Hgb 13.5 g/dL (12.9-16.9) 09/17/16 06:44 Hct 40.8 % (37.5-50.1) 09/17/16 06:44 PT 13.3 Seconds (9.4-12.1) H 09/15/16 18:09 Total Bilirubin 1.7 mg/dL (0.2-1.2) H 09/17/16 06:44 AST 453 Units/L (5-34) H 09/17/16 06:44 ALT 536 Units/L (0-55) H 09/17/16 06:44 Acetaminophen < 1.0 mcg/mL (10-30) L 09/16/16 05:06 - ABG ABG results: PT/INR, D-dimer PT 13.3 Seconds (9.4-12.1) H 09/15/16 18:09 - Impressions Impressions Gallbladder Ultrasound 09/16/16 09:00 IMPRESSION: Common bile duct is upper limits of normal in caliber measuring 6 mm. Correlation for the possibility of biliary obstruction is recommended. D/ / Trixie Davis Cha, MD / Trixie Davis Cha, MD Interpreting Provider: Trixie Davis Cha, MD Fluoroscopy 09/16/16 16:00 IMPRESSION: Intraprocedural fluoroscopic spot images as above. See separate procedure report for more information. D/ / 09/16/2016 16:46:55 Celestino Delacruz MD / beto Interpreting Provider: Celestino Delacruz MD Foot X-Ray 09/16/16 16:00 IMPRESSION: Intraprocedural fluoroscopic spot images as above. See separate procedure report for more information. D/ / 09/16/2016 16:46:55 Celestino Delacruz MD / beto Interpreting Provider: Celestino Delacruz MD Consult Discharge Plan - Plan Referrals: Mamadou Keyes, PAC [Primary Care Provider] - <Mile Mora - Last Filed: 09/17/16 18:21> Time of Encounter: 17:00 - Time Spent With Patient Total time spent is greater than 50% in coordination of care (as documented) at patient's floor/unit and/or counseling patient: GI History of Present Illness - Data of Consult Requesting Physician: Dianne Adkins MD - Consult Narrative History of present illness: Mr. Mason is a 56 year old male - Constitutional Vitals: Temp Pulse Resp BP Pulse Ox 98.0 F 75 18 92/56 93 L 09/17/16 15:10 09/17/16 15:10 09/17/16 15:10 09/17/16 15:10 09/17/16 15:10 Results - Labs CBC & Chem 7: 09/17/16 06:44 09/17/16 06:44 Labs: Last Result Calcium 8.4 mg/dL (8.6-10.8) L 09/17/16 06:44 Entire Visit Hgb 13.5 g/dL (12.9-16.9) 09/17/16 06:44 Hct 40.8 % (37.5-50.1) 09/17/16 06:44 PT 13.3 Seconds (9.4-12.1) H 09/15/16 18:09 Total Bilirubin 1.7 mg/dL (0.2-1.2) H 09/17/16 06:44 AST 453 Units/L (5-34) H 09/17/16 06:44 ALT 536 Units/L (0-55) H 09/17/16 06:44 Acetaminophen < 1.0 mcg/mL (10-30) L 09/16/16 05:06 - ABG ABG results: PT/INR, D-dimer PT 13.3 Seconds (9.4-12.1) H 09/15/16 18:09 - Impressions Impressions Bile Acid Absorption NM 09/17/16 08:30 IMPRESSION: Absent visualization of the gallbladder. This is consistent with cystic duct obstruction. Acute cholecystitis cannot be excluded. D/ / 09/17/2016 11:28:03 Aquilino Aparicio MD / jerson Interpreting Provider: Aquilino Aparicio MD Abdomen MRI 09/17/16 11:13 IMPRESSION: Possible focal adenomyomatosis of the gallbladder fundal wall. No evidence of cholelithiasis or cholecystitis. No evidence of biliary ductal dilatation. No evidence of choledocholithiasis. Stable splenomegaly of uncertain etiology. D/ / 09/17/2016 14:44:28 Javan Jean MD / jerson Interpreting Provider: Javan Jean MD - Attending Attestation I examined this patient and my medical decision-making was reviewed with the HARVESTING MANAGER/PA/Advanced Practice Nurse/Resident Physician. I agree with the documented findings, disposition and treatment plan as described except to the extent set forth below. AbNormal LFTs most probably due to hepatitis C with rule out other causes including meds. MRCP negative. Patient to follow up outpatient for further workup
[2016-09-17] MEDS: Nicotine 21 MG PATCH.TD24 TD SCH ×2 (09:58→14:45)
[2016-09-17] MEDS: *HR* Enoxaparin 40 MG/0.4 ML SYRINGE SQ SCH (09:58)
[2016-09-17] MEDS: Venlafaxine XR (24 HR) 150 MG CAP.ER.24H PO SCH (11:08)
[2016-09-17] MEDS: Aspirin 81 MG TAB.CHEW PO SCH (11:09)
[2016-09-17] MEDS: Gabapentin 300 MG CAPSULE PO SCH ×3 (11:09→20:43)
--- NOTE | 2016-09-17 11:16 | Podiatry Progress Note ---
Date of Encounter: 09/17/16 Time of Encounter: 11:00 - Assessment and Plan (1) Retained foreign body fragment Current Visit: No Status: Acute Status post excision of ulceration left foot, incision and drainage of abscess left foot, removal of foreign body left foot on 09/16/2016. Intraoperative cultures obtained and pending. WBC: 4.4 From a Podiatry standpoint patient is okay to be discharged on empiric antibiotics until the cultures come back. According to Dr. Vega operative note the abscess was small and PO antibiotics would be sufficient unless patient is having other issues than we will continue IV antibiotics until his discharge. Minimize weight bearing to the forefoot of the left foot with a post op shoe or cam boot. Recommend using walker for assistance. Daily dressing changes will be needed. Cleanse incision site daily with mild soap and water, pat dry, apply adaptic, 4x4 dry sterile gauze, kerlix and tape. Paitent states he has help at home to change his dressings. If patient has difficulty performing the dressing changes on his own he can f/u weekly in Podiatry clinic for dressing changes. Patient will need to f/u in Podiatry clinic with in one week of discharge from the hospital. (2) Cellulitis of foot Current Visit: No Status: Acute Status post excision of ulceration left foot, incision and drainage of abscess left foot, removal of foreign body left foot on 09/16/2016. Intraoperative cultures obtained and pending. WBC: 4.4 From a Podiatry standpoint patient is okay to be discharged on empiric antibiotics until the cultures come back. According to Dr. Vega operative note the abscess was small and PO antibiotics would be sufficient unless patient is having other issues than we will continue IV antibiotics until his discharge. Minimize weight bearing to the forefoot of the left foot with a post op shoe or cam boot. Recommend using walker for assistance. Daily dressing changes will be needed. Cleanse incision site daily with mild soap and water, pat dry, apply adaptic, 4x4 dry sterile gauze, kerlix and tape. Paitent states he has help at home to change his dressings. If patient has difficulty performing the dressing changes on his own he can f/u weekly in Podiatry clinic for dressing changes. Patient will need to f/u in Podiatry clinic with in one week of discharge from the hospital. Subjective Interval history: Patient is s/p excision of ulceration left foot, incision and drainage of abscess of left foot, removal foreign body left foot by Dr. Vega on 2016. Patient is lying in bed with dressing dry and intact. No c/o pain. Denies any fever, chills, or flu like symptoms overnight. Patient states he has a family member that can help him with dressing changes at home. Objective - Vital Signs Vital Signs: Vital Signs Temp Pulse Resp BP Pulse Ox 09/17/16 10:43 98.3 F 74 18 100/67 94 L 09/17/16 06:43 99.0 F 76 18 103/68 93 L 09/17/16 03:58 97.7 F 80 20 115/72 98 09/17/16 00:20 97 09/17/16 00:00 97.8 F 84 22 111/70 99 09/16/16 21:37 97 09/16/16 20:00 98.0 F 84 19 107/71 96 09/16/16 16:54 98.0 F 68 16 95/60 94 L 09/16/16 12:00 97.8 F 70 18 102/68 95 Intake and Output 09/16/16 09/17/16 09/17/16 23:59 07:59 15:59 Intake Total 1550 / 1550 100 / 100 0 / 0 Output Total 803 / 803 300 / 300 600 / 600 Balance 747 / 747 -200 / -200 -600 / -600 Intake: IV Fluids 350 / 350 100 / 100 Zosyn 3.375 GM In 100 / 100 100 / 100 Dextrose 5% (Minibag+) 100 ML 100 ML @ 25 mls/hr IVPB Q8H [facility]EE Rx#: [id number] Vancocin 1,500 MG In 250 / 250 Dextrose 5% 250 ML @ 166. 667 mls/hr IVPB Q12H CEE Rx#:[id number] Oral 1200 / 1200 0 / 0 Output: Urine 800 / 800 300 / 300 600 / 600 Estimated Blood Loss 3 / 3 Other: # Voids 1 - Exam Exam: General appearance: alert awake oriented X 3. Calm and pleasant, no acute distress.. Vascular: Left foot: Pedal pulses +2/4 DP/PT , No evidence of cyanosis, pallor or rubor, Edema graded at 1+/4, Skin Temperature warm, No calf pain with manual compression. capillary refill time is immediate to digits. Neurologic: Sensation intact with light touch to left foot. . Postop Exam: S/P Sutures intact to incision lines, no signs of dehiscence, light periwound erythema. Scant amount of serous drainage, no active drainage, no odor, no streaking. Minimal edema. - Lab Result Diagrams: 09/17/16 06:44 09/17/16 06:44 Labs: Abnormal lab results RDW 14.6 % (11.5-14.5) H 09/17/16 06:44 Reactive Lymphocytes Present (Not Present) A 09/17/16 06:44 PT 13.3 Seconds (9.4-12.1) H 09/15/16 18:09 BUN 7 mg/dL (8-26) L 09/17/16 06:44 Glucose 104 mg/dL (70-99) H 09/17/16 06:44 Calcium 8.4 mg/dL (8.6-10.8) L 09/17/16 06:44 Total Bilirubin 1.7 mg/dL (0.2-1.2) H 09/17/16 06:44 Direct Bilirubin 0.8 mg/dL (0.0-0.5) H 09/16/16 05:06 AST 453 Units/L (5-34) H 09/17/16 06:44 ALT 536 Units/L (0-55) H 09/17/16 06:44 Alkaline Phosphatase 191 Units/L (38-126) H 09/17/16 06:44 Serum Total Protein 5.7 g/dL (6.0-8.3) L 09/17/16 06:44 Albumin 2.6 g/dL (3.5-5.0) L 09/17/16 06:44 Albumin/Globulin Ratio 0.8 (1.1-2.2) L 09/17/16 06:44 Acetaminophen < 1.0 mcg/mL (10-30) L 09/16/16 05:06 Hepatitis C Ab Screen Reactive (Nonreactive) H 09/16/16 05:06 Consult Discharge Plan - Plan Referrals: Mamadou Keyes, PAC [Primary Care Provider] -
--- NOTE | 2016-09-17 15:32 | Internal Med Progress Note ---
Date of Encounter: 09/17/16 Time of Encounter: 15:30 - Assessment and plan (1) Foreign body foot/toe Current Visit: Yes Status: Acute Assessment and plan: Podiatry consult appreciated. Patient underwent excision of left plantar ulcer , incision and drainage of foot abscess and removal of foreign body, postoperative day 1. Follow-up intraoperative wound cultures. Continue IV vancomycin and Zosyn. Pain control and supportive care. Local wound care per podiatry. Nonweightbearing recommended on left forefoot. (2) Cellulitis Current Visit: Yes Status: Acute Assessment and plan: Left foot cellulitis and abscess status post incision and drainage. Continue broad-spectrum IV antibiotics as above. Follow up on cultures. Qualifiers: Site of cellulitis: extremity Site of cellulitis of extremity: lower extremity Laterality: left Qualified Code(s): L03.116 - Cellulitis of left lower limb (3) Elevated liver enzymes Current Visit: Yes Status: Acute Assessment and plan: Incidental finding of elevated AST/ALTs. Gallbladder ultrasound shows possible 6 mm common bile duct with no gallstones or cholecystitis. Nuclear medicine biliary scan shows absence of gallbladder suggestive of cystic duct obstruction. MRCP shows no intra-or extrahepatic biliary obstruction, focal adenomyomatosis of the gallbladder fundus, chronic splenomegaly. Case discussed with GI, will follow up final recommendations. Hepatitis C antibody screen is noted to be positive, awaiting confirmation. Serology for hepatitis B is negative. Patient is not an alcoholic. (4) Hypertension Current Visit: Yes Status: Chronic Qualifiers: Hypertension type: essential hypertension Qualified Code(s): I10 - Essential (primary) hypertension (5) JANNA on CPAP Current Visit: Yes Status: Chronic Assessment and plan: CPAP at bedtime (6) Tobacco use Current Visit: Yes Status: Chronic (7) History of CVA (cerebrovascular accident) Current Visit: Yes Status: Inactive - Subjective Interval history: Noted to be resting comfortably in bed. No nausea, vomiting, abdominal pain. No bowel movements yet since his foot surgery. No left foot pain reported. - Constitutional Vitals: Temp Pulse Resp BP Pulse Ox 98.0 F 75 18 92/56 93 L 09/17/16 15:10 09/17/16 15:10 09/17/16 15:10 09/17/16 15:10 09/17/16 15:10 General appearance: Present: A&O X 3, answers questions appropriately - Respiratory Respiratory exam: Present: CTAB. Absent: accessory muscle use, rales, rhonchi, wheezes - Cardiovascular Cardiovascular exam: Present: RRR, +S1, +S2. Absent: diastolic murmur, gallop, rubs, systolic murmur - GI/Abdominal GI/Abdominal exam: Present: normal bowel sounds, soft, no peritoneal signs. Absent: distended, tenderness - Extremities Exam Extremities exam: Present: normal inspection (Left foot surgical dressing intact and dry), warm, radial pulses palpable and symetrical. Absent: calf tenderness, cyanotic, pedal edema Internal Medicine: Result - Labs CBC & Chem 7: 09/17/16 06:44 09/17/16 06:44 Labs: Short CBC 09/17/16 Range/Units 06:44 WBC 4.4 (4.3-11.1) K/mcL Hgb 13.5 (12.9-16.9) g/dL Hct 40.8 (37.5-50.1) % Plt Count 163 (140-400) K/mcL Neutrophils # 2.7 (1.6-8.9) K/mcL BMP 09/17/16 06:44 Sodium 137 Potassium 4.2 Chloride 107 Carbon Dioxide 25 BUN 7 L Creatinine 0.88 Glucose 104 H Calcium 8.4 L Liver Function 09/17/16 Range/Units 06:44 Total Bilirubin 1.7 H (0.2-1.2) mg/dL AST 453 H (5-34) Units/L ALT 536 H (0-55) Units/L Alkaline Phosphatase 191 H (38-126) Units/L Albumin 2.6 L (3.5-5.0) g/dL - ABG Interpretation ABG results: PT/INR, D-dimer PT 13.3 Seconds (9.4-12.1) H 09/15/16 18:09 - Impressions Impressions Fluoroscopy 09/16/16 16:00 IMPRESSION: Intraprocedural fluoroscopic spot images as above. See separate procedure report for more information. D/ / 09/16/2016 16:46:55 Celestino Delacruz MD / [email or web address] Interpreting Provider: Celestino Delacruz MD Foot X-Ray 09/16/16 16:00 IMPRESSION: Intraprocedural fluoroscopic spot images as above. See separate procedure report for more information. D/ / 09/16/2016 16:46:55 Celestino Delacruz MD [facility] Provider: Celestino Delacruz MD Bile Acid Absorption NM 09/17/16 08:30 IMPRESSION: Absent visualization of the gallbladder. This is consistent with cystic duct obstruction. Acute cholecystitis cannot be excluded. D/ / 09/17/2016 11:28:03 Aquilino Aparicio MD / [facility] Interpreting Provider: Aquilino Aparicio MD Abdomen MRI 09/17/16 11:13 IMPRESSION: Possible focal adenomyomatosis of the gallbladder fundal wall. No evidence of cholelithiasis or cholecystitis. No evidence of biliary ductal dilatation. No evidence of choledocholithiasis. Stable splenomegaly of uncertain etiology. D/ / 09/17/2016 14:44:28 Javan Jean MD / [facility]erson Interpreting Provider: Javan Jean MD Consult Discharge Plan - Plan Referrals: Mamadou Keyes, PAC [Primary Care Provider] - Meena Denise MD [Partnered Physician] - 10/21/16 2:45 pm
[2016-09-18] MEDS: Piperacillin/Tazobactam 3.375 GM in D5% in Water (Mini-Bag+) 100 ML IVPB SCH ×2 (00:16→09:56)
[2016-09-18] MEDS: Vancomycin 1,500 MG in D5% in Water 250 ML IVPB SCH (05:08)
[2016-09-18 06:46] LABS: Albumin 2.7 g/dL (3.5-5.0); Albumin/Globulin Ratio 0.8 (1.1-2.2); Bilirubin,Direct 1.1 mg/dL (0.0-0.5); Bilirubin,Indirect 0.5 mg/dL (0.0-1.2); Bilirubin,Total 1.6 mg/dL (0.2-1.2); Globulin 3.4 g/dL (2.4-3.5); Total Protein 6.1 g/dL (6.0-8.3)
[2016-09-18] MEDS ORDERED: Aminoglycoside Consult 1 EACH MC ONE (08:02)
[2016-09-18] MEDS: Venlafaxine XR (24 HR) 150 MG CAP.ER.24H PO SCH (09:55)
[2016-09-18] MEDS: Gabapentin 300 MG CAPSULE PO SCH ×3 (09:55→20:34)
[2016-09-18] MEDS: Nicotine 21 MG PATCH.TD24 TD SCH (09:56)
[2016-09-18] MEDS: Aspirin 81 MG TAB.CHEW PO SCH (09:56)
[2016-09-18] MEDS: *HR* Enoxaparin 40 MG/0.4 ML SYRINGE SQ SCH (09:56)
--- NOTE | 2016-09-18 15:14 | Internal Med Progress Note ---
Date of Encounter: 09/18/16 Time of Encounter: 15:13 - Assessment and plan (1) Foreign body foot/toe Current Visit: Yes Status: Acute Assessment and plan: Podiatry follow-up appreciated. Patient underwent excision of left plantar ulcer, incision and drainage of foot abscess and removal of foreign body, postoperative day 2. Stable for discharge from podiatry standpoint with outpatient follow-up. Intraoperative wound culture grows streptococcus pyogenes /group A strep. Will change antibiotics to IV clindamycin and Unasyn. Local wound care with daily dressing changes. Nonweightbearing recommended on left forefoot. (2) Cellulitis Current Visit: Yes Status: Acute Assessment and plan: Left foot cellulitis and abscess status post incision and drainage. Continue IV antibiotics as above. Qualifiers: Site of cellulitis: extremity Site of cellulitis of extremity: lower extremity Laterality: left Qualified Code(s): L03.116 - Cellulitis of left lower limb (3) Elevated liver enzymes Current Visit: Yes Status: Acute Assessment and plan: Incidental finding of elevated AST/ALTs, noted to be worsening today. Case discussed with GI, recommend to continue to monitor LFTs. At this time, this is likely related to medications? Hepatitis C antibody screen is noted to be positive, awaiting confirmation. Serology for hepatitis B is negative. Patient is not an alcoholic. No use of [id number] medications/herbal medicines. Gallbladder ultrasound shows possible 6 mm common bile duct with no gallstones or cholecystitis. Nuclear medicine biliary scan shows absence of gallbladder suggestive of cystic duct obstruction. MRCP shows no intra-or extrahepatic biliary obstruction, focal adenomyomatosis of the gallbladder fundus, chronic splenomegaly. (4) Hypertension Current Visit: Yes Status: Chronic Qualifiers: Hypertension type: essential hypertension Qualified Code(s): I10 - Essential (primary) hypertension (5) JANNA on CPAP Current Visit: Yes Status: Chronic (6) Tobacco use Current Visit: Yes Status: Chronic - Subjective Interval history: Reports no foot pain, nausea, vomiting, shortness of breath; able to ambulate with partial weight-bearing to left forefoot; no abdominal pain; - Constitutional Vitals: Temp Pulse Resp BP Pulse Ox 98.3 F 78 16 118/72 93 L 09/18/16 11:08 09/18/16 11:08 09/18/16 11:08 09/18/16 11:08 09/18/16 11:08 General appearance: Present: A&O X 3, answers questions appropriately - Respiratory Respiratory exam: Present: CTAB. Absent: accessory muscle use, rales, rhonchi, wheezes - Cardiovascular Cardiovascular exam: Present: RRR, +S1, +S2. Absent: diastolic murmur, gallop, rubs, systolic murmur Internal Medicine: Result - Labs CBC & Chem 7: 09/17/16 06:44 09/17/16 06:44 Labs: Liver Function 09/18/16 Range/Units 06:24 Total Bilirubin 1.6 H (0.2-1.2) mg/dL Direct Bilirubin 1.1 H (0.0-0.5) mg/dL AST 626 H (5-34) Units/L ALT 654 H (0-55) Units/L Alkaline Phosphatase 294 H (38-126) Units/L Albumin 2.7 L (3.5-5.0) g/dL - ABG Interpretation ABG results: PT/INR, D-dimer PT 13.3 Seconds (9.4-12.1) H 09/15/16 18:09 - Impressions Impressions Abdomen MRI 09/17/16 11:13 IMPRESSION: Possible focal adenomyomatosis of the gallbladder fundal wall. No evidence of cholelithiasis or cholecystitis. No evidence of biliary ductal dilatation. No evidence of choledocholithiasis. Stable splenomegaly of uncertain etiology. D/ / 09/17/2016 14:44:28 Javan Jean MD / [email or web address] Interpreting Provider: Javan Jean MD Consult Discharge Plan - Plan Referrals: Mamadou Keyes, PAC [Primary Care Provider] - Meena Denise MD [Partnered Physician] - 10/21/16 2:45 pm
[2016-09-18] MEDS: Clindamycin 600 MG/50 ML 600 MG/50 ML IV.SOLN IVPB SCH ×2 (16:06→23:58)
[2016-09-18] MEDS: Ampicillin/Sulbactam 3,000 MG in 0.9 % Sodium Chloride Mini Bag 100 ML IVPB SCH ×2 (17:43→23:20)
[2016-09-19] MEDS: Ampicillin/Sulbactam 3,000 MG in 0.9 % Sodium Chloride Mini Bag 100 ML IVPB SCH ×2 (06:22→13:12)
[2016-09-19 06:56] LABS: Albumin 2.9 g/dL (3.5-5.0); Albumin/Globulin Ratio 0.8 (1.1-2.2); Bilirubin,Direct 1.2 mg/dL (0.0-0.5); Bilirubin,Indirect 0.6 mg/dL (0.0-1.2); Bilirubin,Total 1.8 mg/dL (0.2-1.2); Globulin 3.6 g/dL (2.4-3.5); Total Protein 6.5 g/dL (6.0-8.3)
--- NOTE | 2016-09-19 09:20 | Gastroenterology Progress Note ---
<Savanna Quispe - Last Filed: 09/19/16 12:15> Date of Encounter: 09/19/16 Time of Encounter: 11:02 - Assessment and plan (1) Positive hepatitis C antibody test Status: Acute Assessment and plan: confirmatory testing ordered. Explained to patient that at time of d/c, 3 days post-d/c have LFTs rechecked. F/U with GI clinic (myself or Dr. Mora) in 2-4 wks. (2) Elevated liver enzymes Status: Acute Assessment and plan: Trending lower, but remain quite elevated. US liver wnl. Imaging negative for obstruction to explain elevated enzymes. He is Hep C screen positive, confirmatory testing has not yet been resulted. Suspect this is drug induced liver injury, consider changing atbs (both Unasyn and Zosyn can have liver adverse reactions). Atbs in presence of underlying Hep C virus may be the cause , however, LFTs are relatively stable. Recommend change in atbs and monitor levels again 3 days. F/U in GI clinic. - Time Spent With Patient Total time spent is greater than 50% in coordination of care (as documented) at patient's floor/unit and/or counseling patient: less than 15 minutes - Subjective Interval history: Patient being seen for continued elevation in LFTs. He was resting in no apparent distress in bed, no family at bedside. Denies any and all GI complaints. - Constitutional Vitals: Temp Pulse Resp BP Pulse Ox 98.7 F 83 16 119/78 94 L 09/19/16 06:42 09/19/16 06:42 09/19/16 06:42 09/19/16 06:42 09/19/16 06:42 General appearance: Present: cooperative, A&O X 3, no acute distress, answers questions appropriately - Head Head exam: Present: atraumatic, normocephalic - Eye Eye exam: Present: normal appearance, sclera anicteric - ENT ENT exam: Present: mucous membranes moist - Neck Neck exam general surgery: Present: normal inspection, trachea midline - Respiratory Respiratory exam: Present: CTAB - Cardiovascular Cardiovascular exam: Present: RRR, +S1, +S2 - GI/Abdominal GI/Abdominal exam: Present: normal bowel sounds, soft, no peritoneal signs - Rectal Rectal exam: Present: deferred - Extremities Exam Additional comments: L foot bandaged. - Neurological Exam Neurological exam: Present: no focal deficits - Psychiatric Psychiatric exam: Present: normal affect, normal mood - Skin Skin exam: Present: dry, intact, normal color, warm Results - Labs CBC & Chem 7: 09/17/16 06:44 09/17/16 06:44 Labs: Last Result Calcium 8.4 mg/dL (8.6-10.8) L 09/17/16 06:44 Entire Visit Hgb 13.5 g/dL (12.9-16.9) 09/17/16 06:44 Hct 40.8 % (37.5-50.1) 09/17/16 06:44 PT 13.3 Seconds (9.4-12.1) H 09/15/16 18:09 Total Bilirubin 1.8 mg/dL (0.2-1.2) H 09/19/16 06:03 AST 649 Units/L (5-34) H 09/19/16 06:03 ALT 729 Units/L (0-55) H 09/19/16 06:03 Acetaminophen < 1.0 mcg/mL (10-30) L 09/16/16 05:06 - ABG ABG results: PT/INR, D-dimer PT 13.3 Seconds (9.4-12.1) H 09/15/16 18:09 - Impressions Impressions Abdomen MRI 09/17/16 11:13 IMPRESSION: Possible focal adenomyomatosis of the gallbladder fundal wall. No evidence of cholelithiasis or cholecystitis. No evidence of biliary ductal dilatation. No evidence of choledocholithiasis. Stable splenomegaly of uncertain etiology. D/ / 09/17/2016 14:44:28 Javan Jean MD / [email or web address] Interpreting Provider: Javan Jean MD Consult Discharge Plan - Plan Additional Instructions: Follow-up with GI clinic in one week Labs to be drawn in 3-5 days Follow-up with podiatry clinic in one week Daily dressing changes. Cleanse wound with mild soap and water. Pat dry. Apply adaptic, 4x4, Kerlix and tape. Referrals: Mamadou Keyes, PAC [Primary Care Provider] - Meena Denise MD [Partnered Physician] - 10/21/16 2:45 pm Prescriptions: Cephalexin [Keflex] 500 mg PO BID 7 Days Clindamycin HCl 300 mg PO Q6H 7 Days Gauze Bandage [Kerlix] 1 each TP DAILY 7 Days Lactobacillus [Culturelle] 1 each PO BID 10 Days <Mile Mora - Last Filed: 09/20/16 22:06> Time of Encounter: 15:00 - Time Spent With Patient Total time spent is greater than 50% in coordination of care (as documented) at patient's floor/unit and/or counseling patient: - Constitutional Vitals: Temp Pulse Resp BP Pulse Ox 98.3 F 96 18 118/76 93 L 09/19/16 14:38 09/19/16 14:38 09/19/16 14:38 09/19/16 14:38 09/19/16 14:38 Results - Labs CBC & Chem 7: 09/17/16 06:44 09/17/16 06:44 Labs: Last Result Calcium 8.4 mg/dL (8.6-10.8) L 09/17/16 06:44 HCV RNA (PCR) IUs/ml 8,300,000 IU/mL 09/17/16 10:15 HCV RNA PCR log IUs/ml 6.9 log IU 09/17/16 10:15 HCV RNA (PCR) Interp DETECTED (Not Detected) A 09/17/16 10:15 Entire Visit Hgb 13.5 g/dL (12.9-16.9) 09/17/16 06:44 Hct 40.8 % (37.5-50.1) 09/17/16 06:44 PT 13.3 Seconds (9.4-12.1) H 09/15/16 18:09 Total Bilirubin 1.8 mg/dL (0.2-1.2) H 09/19/16 06:03 AST 649 Units/L (5-34) H 09/19/16 06:03 ALT 729 Units/L (0-55) H 09/19/16 06:03 Acetaminophen < 1.0 mcg/mL (10-30) L 09/16/16 05:06 - ABG ABG results: PT/INR, D-dimer PT 13.3 Seconds (9.4-12.1) H 09/15/16 18:09 - Attending Attestation I examined this patient and my medical decision-making was reviewed with the HUMAN RESOURCES SPECIALIST/PA/Advanced Practice Nurse/Resident Physician. I agree with the documented findings, disposition and treatment plan as described except to the extent set forth below.
[2016-09-19] MEDS: *HR* Enoxaparin 40 MG/0.4 ML SYRINGE SQ SCH (09:45)
[2016-09-19] MEDS: Venlafaxine XR (24 HR) 150 MG CAP.ER.24H PO SCH (09:45)
[2016-09-19] MEDS: Aspirin 81 MG TAB.CHEW PO SCH (09:45)
[2016-09-19] MEDS: Gabapentin 300 MG CAPSULE PO SCH ×2 (09:46→13:12)
[2016-09-19] MEDS: Nicotine 21 MG PATCH.TD24 TD SCH (09:47)
[2016-09-19] MEDS: Clindamycin 600 MG/50 ML 600 MG/50 ML IV.SOLN IVPB SCH ×2 (09:47→16:27)
--- NOTE | 2016-09-19 12:37 | Podiatry Progress Note ---
Date of Encounter: 09/19/16 Time of Encounter: 12:00 - Assessment and Plan (1) Retained foreign body fragment Current Visit: No Status: Acute Status post excision of ulceration left foot, incision and drainage of abscess left foot, removal of foreign body left foot on 09/16/2016. Intraoperative cultures isolated Strep pyogenes (group A), WBC: 4.[address] Vega operative note the abscess was small and PO antibiotics would be sufficient unless patient is having other issues than we will continue IV antibiotics until his discharge. Minimize weight bearing to the forefoot of the left foot with a post op shoe or cam boot. Recommend using walker for assistance. Daily dressing changes will be needed. Cleanse incision site daily with mild soap and water, pat dry, apply adaptic, 4x4 dry sterile gauze, kerlix and tape. Patient states he has help at home to change his dressings. If patient has difficulty performing the dressing changes on his own he can f/u weekly in Podiatry clinic for dressing changes. Patient will need to f/u in Podiatry clinic with in one week of discharge from the hospital. (2) Cellulitis of foot Current Visit: No Status: Acute Status post excision of ulceration left foot, incision and drainage of abscess left foot, removal of foreign body left foot on 09/16/2016. Intraoperative cultures isolated Strep pyogenes (group A), WBC: 4.[address] Vega operative note the abscess was small and PO antibiotics would be sufficient unless patient is having other issues than we will continue IV antibiotics until his discharge. Minimize weight bearing to the forefoot of the left foot with a post op shoe or cam boot. Recommend using walker for assistance. Daily dressing changes will be needed. Cleanse incision site daily with mild soap and water, pat dry, apply adaptic, 4x4 dry sterile gauze, kerlix and tape. Patient states he has help at home to change his dressings. If patient has difficulty performing the dressing changes on his own he can f/u weekly in Podiatry clinic for dressing changes. Patient will need to f/u in Podiatry clinic with in one week of discharge from the hospital. Subjective Interval history: Patient is s/p excision of ulceration left foot, incision and drainage of abscess of left foot, removal foreign body left foot by Dr. Vega on 02/13/ 2017. Patient is lying in bed with dressing dry and intact. No c/o pain. Denies any fever, chills, or flu like symptoms overnight. Patient states he has a family member that can help him with dressing changes at home. Patient states he thinks he is going home today. Objective - Vital Signs Vital Signs: Vital Signs Temp Pulse Resp BP Pulse Ox 09/19/16 11:50 98.4 F 90 20 115/70 91 L 09/19/16 06:42 98.7 F 83 16 119/78 94 L 09/19/16 00:47 98.6 F 76 16 117/74 92 L 09/18/16 21:03 98.4 F 76 16 123/86 93 L 09/18/16 20:39 97 09/18/16 15:56 98.2 F 69 16 119/76 95 Intake and Output 09/18/16 09/19/16 09/19/16 23:59 07:59 15:59 Intake Total 450 / 450 150 / 150 150 / 150 Output Total 1075 / 1075 625 / 625 Balance -625 / -625 -475 / -475 150 / 150 Intake: IV Fluids 150 / 150 150 / 150 150 / 150 Unasyn 3,000 MG In 0.9 % 100 / 100 100 / 100 100 / 100 Sodium Chloride (Mini-Bag +) 100 ML @ 200 mls/hr IVPB Q6HR CEE Rx#: [id number] Cleocin 600 MG/50 ML 600 50 / 50 50 / 50 50 / 50 mg In 50 ml @ 50 mls/hr IVPB Q8HR CEE Rx#: [id number] Oral 300 / 300 Output: Urine 1075 / 1075 625 / 625 Other: # Voids 2 - Exam Exam: General appearance: alert awake oriented X 3. Calm and pleasant, no acute distress.. Vascular: Left foot: Pedal pulses +2/4 DP/PT , No evidence of cyanosis, pallor or rubor, Edema graded at 1+/4, Skin Temperature warm, No calf pain with manual compression. capillary refill time is immediate to digits. Neurologic: Sensation intact with light touch to left foot. . Postop Exam: S/P Sutures intact to incision lines, no signs of dehiscence, light periwound erythema. Scant amount of serous drainage, no active drainage, no odor, no streaking. Minimal edema. - Lab Result Diagrams: 09/17/16 06:44 09/17/16 06:44 Labs: Abnormal lab results RDW 14.6 % (11.5-14.5) H 09/17/16 06:44 Reactive Lymphocytes Present (Not Present) A 09/17/16 06:44 PT 13.3 Seconds (9.4-12.1) H 09/15/16 18:09 BUN 7 mg/dL (8-26) L 09/17/16 06:44 Glucose 104 mg/dL (70-99) H 09/17/16 06:44 Calcium 8.4 mg/dL (8.6-10.8) L 09/17/16 06:44 Total Bilirubin 1.8 mg/dL (0.2-1.2) H 09/19/16 06:03 Direct Bilirubin 1.2 mg/dL (0.0-0.5) H 09/19/16 06:03 AST 649 Units/L (5-34) H 09/19/16 06:03 ALT 729 Units/L (0-55) H 09/19/16 06:03 Alkaline Phosphatase 340 Units/L (38-126) H 09/19/16 06:03 Albumin 2.9 g/dL (3.5-5.0) L 09/19/16 06:03 Globulin 3.6 g/dL (2.4-3.5) H 09/19/16 06:03 Albumin/Globulin Ratio 0.8 (1.1-2.2) L 09/19/16 06:03 Acetaminophen < 1.0 mcg/mL (10-30) L 09/16/16 05:06 Hepatitis C Ab Screen Reactive (Nonreactive) H 09/16/16 05:06 Microbiology, Last 48 Hours 09/16/16 18:47 Anaerobic Culture - Preliminary Left Foot At this time, no anaerobic growth is present. The culture will be finalized after 5 days of incubation. 09/16/16 18:47 Wound Culture - Final Left Foot Strep pyogenes (Group A) Consult Discharge Plan - Plan Referrals: Mamadou Keyes, PAC [Primary Care Provider] - Meena Denise MD [Partnered Physician] - 10/21/16 2:45 pm
[2016-09-19 12:59] LABS: HCV Quant Interpretation DETECTED (Not Detected)
[2016-09-19 16:06] VITALS: BP 118/76
--- NOTE | 2016-09-19 16:52 | Discharge Summary ---
Date of Encounter: 09/19/16 Time of Encounter: 16:44 - Discharge Diagnosis (1) Foreign body foot/toe Priority: Primary Status: Acute (2) Cellulitis Priority: Primary Status: Acute Qualifiers: Site of cellulitis: extremity Site of cellulitis of extremity: lower extremity Laterality: left Qualified Code(s): L03.116 - Cellulitis of left lower limb (3) Elevated liver enzymes Priority: Primary Status: Acute (4) Hypertension Priority: Secondary Status: Chronic Qualifiers: Hypertension type: essential hypertension Qualified Code(s): I10 - Essential (primary) hypertension (5) JANNA on CPAP Priority: Secondary Status: Chronic (6) Tobacco use Priority: Secondary Status: Chronic - Discharge Medications Prescriptions: Cephalexin [Keflex] 500 mg PO BID 7 Days Clindamycin HCl 300 mg PO Q6H 7 Days Gauze Bandage [Kerlix] 1 each TP DAILY 7 Days Lactobacillus [Culturelle] 1 each PO BID 10 Days Home Medications: Aspirin 81 mg PO DAILY 07/26/16 [History] Gabapentin [Neurontin] 300 mg PO 1200 07/26/16 [History] Gabapentin [Neurontin] 600 mg PO QAM AND QHS 07/26/16 [History] Venlafaxine XR (24 HR) [Effexor Xr] 150 mg PO DAILY 07/26/16 [History] Nicotine Patch [Nicoderm] 21 mg TD DAILY #30 patch.td24 07/30/16 [Rx] Cephalexin [Keflex] 500 mg PO BID 7 Days 09/19/16 [Rx] Clindamycin HCl 300 mg PO Q6H 7 Days 09/19/16 [Rx] Gauze Bandage [Kerlix] 1 each TP DAILY 7 Days 09/19/16 [Rx] Lactobacillus [Culturelle] 1 each PO BID 10 Days 09/19/16 [Rx] Allergies/Adverse Reactions: Allergies No Known Allergies Allergy (Verified 09/15/16 16:55) Procedures/tests Complete & Pending: Procedures Performed prior 72 hours Category Date Time Status NM hepatobiliary [NM] Routine Exams 09/17/16 08:30 Completed MR abdomen wo con [MR] Stat MRI 09/17/16 11:13 Completed Date of admission: 09/15/16 22:02 Primary care physician: Mamadou Keyes Consults: 09/16/16 16:42 Consult to Gastroenterology [CONS] Routine Consulting Provider: Santos Jolley Reason for Consult: elevated LFTs Call Completed: Yes Discharging clinician: Dianne Adkins Anticipated date of discharge: 09/19/16 - Patient Status Disposition: Home, Self-Care Condition: Fair Functional capacity at discharge: independent ambulation Overall status at discharge: patient is progressing back to baseline - Discharge Instructions Follow Up With: Mamadou Keyes, PAC [Primary Care Provider] - Meena Denise MD [Partnered Physician] - 10/21/16 2:45 pm Additional Instructions: Follow-up with GI clinic in one week Labs to be drawn in 3-5 days Follow-up with podiatry clinic in one week Daily dressing changes. Cleanse wound with mild soap and water. Pat dry. Apply adaptic, 4x4, Kerlix and tape. - Diet and Activity Activity: resume usual activities as tolerated Diet: low fat, low cholesterol, low salt diet Hospital course: Mr. Mason is a 56 year old male with the above medical problems who was admitted with left foot pain and swelling. He underwent recent removal of foreign body from left foot in July 2016. He was started on broad-spectrum IV antibiotics-vancomycin and Zosyn along with IV hydration. Podiatry was consulted and patient underwent excision of left plantar ulcer, irrigation and drainage of abscess and removal of foreign body on 09/16/2016. His wound was noted to be healing well and was stable from podiatry standpoint for discharge home on oral antibiotics and outpatient follow-up with podiatry clinic. Patient was also noted to have an incidental finding of elevated LFTs, which continued to get worse during this hospitalization. Gallbladder ultrasound was done initially which showed possibility of biliary obstruction due to distended common bile duct. Biliary scan was done which showed absent gallbladder but no acute biliary obstruction. GI was consulted and thought this was likely related to the use of medication/drugs especially Zosyn. His operative wound cultures grew group a strep and his antibiotics were changed to Unasyn and clindamycin. Due to the elevated LFTs, at this time he is being discharged on Keflex and clindamycin and recommended to follow up with GI and podiatry as outpatient. He is otherwise medically and hemodynamically stable for discharge. - Time Spent with Patient Total time spent providing and/or coordinating discharge services: Greater than 30 minutes (50 min) - Constitutional Vitals: Temp Pulse Resp BP Pulse Ox 98.3 F 96 18 118/76 93 L 09/19/16 14:38 09/19/16 14:38 09/19/16 14:38 09/19/16 14:38 09/19/16 14:38 General appearance: Present: A&O X 3, answers questions appropriately - Respiratory Respiratory exam: Present: CTAB. Absent: accessory muscle use, rales, rhonchi, wheezes - Cardiovascular Cardiovascular exam: Present: RRR, +S1, +S2. Absent: diastolic murmur, gallop, rubs, systolic murmur
[2016-09-23 12:30] LABS: HCV Genotype by Sequencing 1A OR 1B
== END 2016-09-19 18:38 | disposition home or self-care (01) | DRG 464 ==
LOC: EMEROO 16:46 → 3NENU 16:46 → SUATTDRO 22:02
PROVIDERS: ADMIT Internal Medicine; ATTEND Internal Medicine

== ENCOUNTER 2018-03-18 17:18 | Inpatient (IN) ==
[2018-03-18] MEDS ORDERED: Isovue-370 500 ML INFUS..BTL IV ONE (17:23)
--- NOTE | 2018-03-18 17:57 | Emergency Department Note ---
Disposition Clinical Impression: Jaundice, Hyperbilirubinemia, Transaminitis, Hepatitis Disposition: Admitted As Inpatient Condition: Good Recheck wound or abnormal lab - General Chief Complaint: ED Recheck/Abnormal Lab/Rx Stated Complaint: Jaundice Abnormal LFTs Time Seen by Provider: 03/18/18 17:23 Source: patient Mode of arrival: private vehicle Limitations: no limitations Nursing Notes Reviewed: Yes Vital Signs Reviewed: Yes - History of Present Illness HPI Narrative: 58-year-old male history of hepatitis C from childhood transfusion presents to the ER from his gastroenterology appointment for jaundice. The patient reports this started roughly 3 weeks ago with epigastric abdominal pain. He states he turned yellow Friday before last. He has felt generalized malaise as well as nausea with one episode of vomiting several days ago. He denies any alcohol or drug use. No fevers. Reports his urine now looks red and his stool is valentine colored. He was seen here 3 days ago had labs checked as well as a gallbladder ultrasound and was discharged with follow-up with gastroenterology. He was seen in their office today and encouraged to come here for admission and further workup. Pt Subjective Complaint: abnormal lab(s) Symptoms Since Prior Visit: no new symptoms Associated symptoms: malaise, abdominal pain - Related Data Home Medications Medication Instructions Recorded Confirmed Armodafinil [Nuvigil] 250 mg PO DAILY 12/16/16 03/18/18 Gabapentin [Neurontin] 600 mg PO BID 05/29/17 03/18/18 OXcarbazepine [Trileptal] 300 mg PO TID 05/29/17 03/18/18 Omeprazole [PriLOSEC] 20 mg PO DAILY 05/29/17 03/18/18 Allergies Allergy/AdvReac Type Severity Reaction Status Date / Time No Known Allergies Allergy Verified 03/18/18 17:38 All systems ED: reviewed and negative except as stated. Constitutional: Denies: fever Gastrointestinal: Reports: abdominal pain, nausea. Denies: vomiting, diarrhea Genitourinary: Denies: dysuria, hematuria Past Medical History - Past Medical History Attestation: Yes The following information was validated with the patient. Source: patient Medical history: Reports: arthritis, COPD, CVA, GERD, hepatitis, hyperlipidemia , hypertension, kidney stones, osteoporosis, TIA, other Surgical history: Reports: herniorrhaphy, other Psychiatric history: Reports: no psych history, anxiety, depression, prior suicide attempt, previous psychiatric hospitalization, other - Social History Smoking Status: Current every day smoker Smokeless Tobacco Status: No Alcohol use: Reports: rarely Drug use: Reports: none Physical Exam - General Limitations: no limitations General appearance: alert, in no apparent distress - Head Head exam: atraumatic, normocephalic - Eye Eye exam: Present: normal appearance, scleral icterus - ENT ENT exam: normal exam - Neck Neck exam: Present: normal inspection - Chest Chest inspection: Present: normal inspection, symmetric chest wall rise - Respiratory Respiratory exam: Present: normal lung sounds bilaterally - Cardiovascular Cardiovascular exam: Present: regular rate, normal rhythm, normal heart sounds - Abdominal Exam Abdominal exam: Present: soft, tenderness (Mild epigastric tenderness). Absent : distention, guarding, rigidity - Extremities Exam Extremities exam: Present: normal inspection, full ROM - Expanded Upper Extremity Exam Shoulder exam: Present: normal inspection, full ROM Arm exam: Present: normal inspection, full ROM Elbow exam: Present: normal inspection, full ROM Forearm/Wrist exam: Present: normal inspection, full ROM Hand exam: Present: normal inspection, full ROM - Expanded Lower Extremity Exam Hip/Pelvis exam: Present: normal inspection, full ROM Upper leg exam: Present: normal inspection, full ROM Knee exam: Present: normal inspection, full ROM Lower leg exam: Present: normal inspection, full ROM Ankle exam: Present: normal inspection, full ROM Foot/toe exam: Present: normal inspection, full ROM - Skin Skin exam: Present: other (Diffuse jaundice) Course Course Narrative: Patient seen and examined. Vital signs reviewed. Plan for CT imaging, labs, urinalysis. - Consultations Consultation #1: I spoke with the on-call button sawyer prior to the patient arriving Dr. Mora. He requests a CT of the abdomen and pelvis with IV contrast as the patient has a family history of pancreatic cancer as well as to check a hepatitis profile. He recommends admission and he will follow in consultation. He states even if the patient has acute hepatitis the patient can still be admitted. Vital Signs Temperature 98.4 F 03/18/18 17:36 Pulse Rate 71 03/18/18 17:36 Respiratory Rate 18 03/18/18 17:36 Blood Pressure 124/73 03/18/18 17:36 O2 Sat by Pulse Oximetry 93 03/18/18 17:36 Temperature 98.4 F 03/18/18 17:44 Pulse Rate 69 03/18/18 20:34 Respiratory Rate 16 03/18/18 22:24 Blood Pressure 130/82 03/18/18 22:24 O2 Sat by Pulse Oximetry 96 03/18/18 20:34 Oxygen Delivery Oxygen Delivery Room Air Recheck wound or abnormal lab - MDM Narrative Medical decision making narrative: 58-year-old male with underlying hepatitis C presenting with jaundice. Labs continue to worsen showing a worsening elevated bilirubin as well as LFTs. INR is normal. No white count. Afebrile. Pain is minimal. CT imaging demonstrates inflammatory changes around the liver. He does not examine as acute cholecystitis. No biliary ductal dilation to suggest choledocholithiasis. Case was discussed with gastroenterology prior to arrival who is in for consultation. The patient is admitted to the hospital service. - Lab Data Lab results reviewed: Yes I reviewed the patient's lab results. Result diagrams: 03/18/18 17:48 03/18/18 17:48 Lab Results 03/18/18 03/18/18 03/18/18 Range/Units 17:48 17:48 17:48 WBC 5.0 (4.3-11.1) K/mcL RBC 4.81 (4.19-5.50) M/mcL Hgb 14.4 (12.9-16.9) g/dL Hct 41.2 (37.5-50.1) % MCV 85.7 (83.0-100.0) fL MCH 29.9 (28.0-33.3) pg MCHC 35.0 (31.6-35.5) g/dL RDW 18.9 H (11.5-14.5) % Plt Count 228 (140-400) K/mcL MPV 10.5 (9.4-12.4) fL Immature Gran % 1.0 (0-4) % Seg Neutrophils % 65.3 % Lymphocytes % 19.7 % Monocytes % 11.4 % Eosinophils % 1.8 % Basophils % 0.8 % Neutrophils # 3.3 (1.6-8.9) K/mcL Lymphocytes # 1.0 (0.6-4.6) K/mcL Monocytes # 0.6 (0.0-1.3) K/mcL Eosinophils # 0.1 (0.0-0.6) K/mcL Basophils # 0.0 (0.0-0.2) K/mcL PT 17.2 H (9.4-12.1) Seconds INR 1.5 Sodium 132 L (136-145) mEq/L Potassium 3.7 (3.5-5.1) mEq/L Chloride 102 (98-107) mEq/L Carbon Dioxide 25 (23-29) mEq/L BUN 9 (6-20) mg/dL Creatinine 0.79 (0.70-1.30) mg/dL Est GFR ( Amer) > 60 (> 60) Est GFR (Non-Af Amer) > 60 (> 60) BUN/Creatinine Ratio 11 (6-26) Glucose 85 (70-105) mg/dL Calculated Osmolality 272 L (280-300) Calcium 8.6 (8.6-10.3) mg/dL Total Bilirubin 25.4 H (0.3-1.0) mg/dL Direct Bilirubin 15.1 H (0.0-0.2) mg/dL Indirect Bilirubin 10.3 H (0.0-1.2) mg/dL AST 570 H (13-39) Units/L ALT > 500 H (7-52) Units/L Alkaline Phosphatase 188 H (34-104) Units/L Serum Total Protein 7.0 (6.4-8.9) g/dL Albumin 3.3 L (3.5-5.7) g/dL Globulin 3.7 H (2.4-3.5) g/dL Albumin/Globulin Ratio 0.9 L (1.1-2.2) Lipase 33 (11-82) Units/L Ur Specimen Adequacy Urine Color (Yellow) Urine Clarity (Clear) Urine pH (5.0-8.0) pH Units Ur Specific [place] (1.010-1.025) Urine Protein (Neg-Trace) mg/dL Urine Glucose (UA) (Normal) mg/dL Urine Ketones (Negative) mg/dL Urine Blood (Negative) Urine Nitrite (Negative) Urine Bilirubin (Negative) Urine Urobilinogen (Normal) mg/dL Ur Leukocyte Esterase (Negative) Urine Microscopic RBC (0-3) per hpf Urine Microscopic WBC (0-3) per hpf Amorphous Sediment (Few) Urine Bacteria (None-Few) per hpf Urine Mucus (Few) Ur Culture Indicated? (NO) Hepatitis A IgM Ab (Nonreactive) Hep Bs Antigen (Nonreactive) Hep B Core IgM Ab (Nonreactive) Hepatitis C Ab Screen (Nonreactive) 03/18/18 03/18/18 Range/Units 17:48 18:58 WBC (4.3-11.1) K/mcL RBC (4.19-5.50) M/mcL Hgb (12.9-16.9) g/dL Hct (37.5-50.1) % MCV (83.0-100.0) fL MCH (28.0-33.3) pg MCHC (31.6-35.5) g/dL RDW (11.5-14.5) % Plt Count (140-400) K/mcL MPV (9.4-12.4) fL Immature Gran % (0-4) % Seg Neutrophils % % Lymphocytes % % Monocytes % % Eosinophils % % Basophils % % Neutrophils # (1.6-8.9) K/mcL Lymphocytes # (0.6-4.6) K/mcL Monocytes # (0.0-1.3) K/mcL Eosinophils # (0.0-0.6) K/mcL Basophils # (0.0-0.2) K/mcL PT (9.4-12.1) Seconds INR Sodium (136-145) mEq/L Potassium (3.5-5.1) mEq/L Chloride (98-107) mEq/L Carbon Dioxide (23-29) mEq/L BUN (6-20) mg/dL Creatinine (0.70-1.30) mg/dL Est GFR ( Amer) (> 60) Est GFR (Non-Af Amer) (> 60) BUN/Creatinine Ratio (6-26) Glucose (70-105) mg/dL Calculated Osmolality (280-300) Calcium (8.6-10.3) mg/dL Total Bilirubin (0.3-1.0) mg/dL Direct Bilirubin (0.0-0.2) mg/dL Indirect Bilirubin (0.0-1.2) mg/dL AST (13-39) Units/L ALT (7-52) Units/L Alkaline Phosphatase (34-104) Units/L Serum Total Protein (6.4-8.9) g/dL Albumin (3.5-5.7) g/dL Globulin (2.4-3.5) g/dL Albumin/Globulin Ratio (1.1-2.2) Lipase (11-82) Units/L Ur Specimen Adequacy See below A Urine Color Brown (Yellow) Urine Clarity Cloudy A (Clear) Urine pH 5.5 (5.0-8.0) pH Units Ur Specific [place] 1.027 H (1.010-1.025) Urine Protein 30 H (Neg-Trace) mg/dL Urine Glucose (UA) Normal (Normal) mg/dL Urine Ketones 15 H (Negative) mg/dL Urine Blood Negative (Negative) Urine Nitrite Positive A (Negative) Urine Bilirubin Large H (Negative) Urine Urobilinogen Normal (Normal) mg/dL Ur Leukocyte Esterase Moderate H (Negative) Urine Microscopic RBC 0-3 (0-3) per hpf Urine Microscopic WBC 15-30 H (0-3) per hpf Amorphous Sediment Moderate H (Few) Urine Bacteria Moderate H (None-Few) per hpf Urine Mucus Moderate H (Few) Ur Culture Indicated? YES A (NO) Hepatitis A IgM Ab Reactive H (Nonreactive) Hep Bs Antigen Reactive H (Nonreactive) Hep B Core IgM Ab Reactive H (Nonreactive) Hepatitis C Ab Screen Reactive H (Nonreactive) - Radiology Data Radiology results reviewed: Yes I reviewed the patient's radiology results. Abdomen/Pelvis CT 03/18/18 17:23 IMPRESSION: 1. Mild nonspecific periportal edema in the liver and [place] hepatis as well as gallbladder wall thickening. Small calcified gallstone. Acute cholecystitis not excluded. Other considerations include hypervolemia, passive hepatic congestion, hepatitis, and cholangitis. Recommend correlation with serum liver function tests and if clinically indicated further evaluation could be obtained with right upper quadrant ultrasound or HIDA scan. 2. Mildly enlarged nonspecific but likely reactive portacaval and periportal lymphadenopathy. D/ / Sid Mason MD / Sid Mason MD Interpreting Provider: Sid Mason MD S.B.A.R. - S.B.A.R. Situation: Demographics, MOA Background: Presenting Complaint, Relevant PMH, Meds, & Allergies Assessment: Course and respsone to treatment, Exam Concerns, Patient/Family Expectation, Pertinant Lab Results, Outstanding Labs Recommendation: Barrier(s) to disposition, Recommendation based on pending studies, treatments, or consults Reji Report Given to: Dr. Renzo Mendoza Repor Time: 20:32
[2018-03-18 18:08] LABS: Basophils % 0.8 %; Eosinophils # 0.1 K/mcL (0.0-0.6); Eosinophils % 1.8 %; Hematocrit 41.2 % (37.5-50.1); Hemoglobin 14.4 g/dL (12.9-16.9); Lymphocytes % 19.7 %; Mean Corpuscular Hemoglobin 29.9 pg (28.0-33.3); Mean Corpuscular Volume 85.7 fL (83.0-100.0); Mean Platelet Volume 10.5 fL (9.4-12.4); Monocytes # 0.6 K/mcL (0.0-1.3); Monocytes % 11.4 %; Neutrophils # 3.3 K/mcL (1.6-8.9); Platelet Count 228 K/mcL (140-400); Red Blood Count 4.81 M/mcL (4.19-5.50); Red Cell Distribution Width 18.9 % (11.5-14.5); Segmented Neutrophils % 65.3 %
[2018-03-18 18:16] LABS: INR 1.5; Prothrombin Time 17.2 Seconds (9.4-12.1)
[2018-03-18 18:39] LABS: Alanine Aminotransferase > 500 Units/L (7-52); Albumin 3.3 g/dL (3.5-5.7); Albumin/Globulin Ratio 0.9 (1.1-2.2); Alkaline Phosphatase 188 Units/L (34-104); Aspartate Amino Transferase 570 Units/L (13-39); BUN/Creatinine Ratio 11 (6-26); Bilirubin,Direct 15.1 mg/dL (0.0-0.2); Bilirubin,Indirect 10.3 mg/dL (0.0-1.2); Bilirubin,Total 25.4 mg/dL (0.3-1.0); Blood Urea Nitrogen 9 mg/dL (6-20); Calcium 8.6 mg/dL (8.6-10.3); Carbon Dioxide 25 mEq/L (23-29); Chloride 102 mEq/L (98-107); Globulin 3.7 g/dL (2.4-3.5); Glucose 85 mg/dL (70-105); Lipase 33 Units/L (11-82); Osmolality,Calculated 272 (280-300); Potassium 3.7 mEq/L (3.5-5.1); Sodium 132 mEq/L (136-145); eGFR For Non-African Americans > 60 (> 60)
--- NOTE | 2018-03-18 18:54 | Emergency Department Note ---
Disposition Clinical Impression: Jaundice, Hyperbilirubinemia Disposition: Still a Patient Condition: Fair Referrals: Natali Del Valle [Primary Care Provider] - Forms: ED Satisfaction Letter General Adult HPI - General Chief complaint: ED Recheck/Abnormal Lab/Rx Stated complaint: Jaundice Abnormal LFTs Time Seen by Provider: 03/18/18 17:23 Source: patient Mode of arrival: private vehicle Limitations: no limitations Nursing Notes Reviewed: Yes Vital Signs Reviewed: Yes - History of Present Illness Pain Scale: 3 - Related Data Home Medications Medication Instructions Recorded Confirmed Armodafinil [Nuvigil] 250 mg PO DAILY 12/16/16 05/29/17 Gabapentin [Neurontin] 600 mg PO TID 05/29/17 05/29/17 OXcarbazepine [Trileptal] 300 mg PO TID 05/29/17 05/29/17 Omeprazole [PriLOSEC] 20 mg PO DAILY 05/29/17 05/29/17 Previous Rx's Medication Instructions Recorded Meclizine HCl [Verticalm] 25 mg PO TID PRN #60 tablet 05/29/17 Acetaminophen [Tylenol] 500 mg PO Q6HR PRN #20 tablet 02/24/18 Allergies Allergy/AdvReac Type Severity Reaction Status Date / Time No Known Allergies Allergy Verified 03/18/18 17:38 Constitutional: Denies: fever Gastrointestinal: Reports: abdominal pain, nausea. Denies: vomiting, diarrhea Genitourinary: Denies: dysuria, hematuria Past Medical History - Past Medical History Medical history: Reports: arthritis, COPD, CVA, GERD, hepatitis, hyperlipidemia , hypertension, kidney stones, osteoporosis, TIA, other Surgical history: Reports: herniorrhaphy, other Psychiatric history: Reports: no psych history, anxiety, depression, prior suicide attempt, previous psychiatric hospitalization, other - Social History Smoking Status: Current every day smoker Smokeless Tobacco Status: No Alcohol use: Reports: rarely Drug use: Reports: none Physical Exam - General Limitations: no limitations General appearance: alert, in no apparent distress Course Vital Signs Temperature 98.4 F 03/18/18 17:36 Pulse Rate 71 03/18/18 17:36 Respiratory Rate 18 03/18/18 17:36 Blood Pressure 124/73 03/18/18 17:36 O2 Sat by Pulse Oximetry 93 03/18/18 17:36 Temperature 98.4 F 03/18/18 17:44 Pulse Rate 71 03/18/18 17:44 Respiratory Rate 18 03/18/18 17:44 Blood Pressure 124/73 03/18/18 17:44 O2 Sat by Pulse Oximetry 93 03/18/18 17:44 Oxygen Delivery Oxygen Delivery Room Air Medical Decision Making - Lab Data Result diagrams: 03/18/18 17:48 03/18/18 17:48 Lab Results 03/18/18 03/18/18 03/18/18 Range/Units 17:48 17:48 17:48 WBC 5.0 (4.3-11.1) K/mcL RBC 4.81 (4.19-5.50) M/mcL Hgb 14.4 (12.9-16.9) g/dL Hct 41.2 (37.5-50.1) % MCV 85.7 (83.0-100.0) fL MCH 29.9 (28.0-33.3) pg MCHC 35.0 (31.6-35.5) g/dL RDW 18.9 H (11.5-14.5) % Plt Count 228 (140-400) K/mcL MPV 10.5 (9.4-12.4) fL Immature Gran % 1.0 (0-4) % Seg Neutrophils % 65.3 % Lymphocytes % 19.7 % Monocytes % 11.4 % Eosinophils % 1.8 % Basophils % 0.8 % Neutrophils # 3.3 (1.6-8.9) K/mcL Lymphocytes # 1.0 (0.6-4.6) K/mcL Monocytes # 0.6 (0.0-1.3) K/mcL Eosinophils # 0.1 (0.0-0.6) K/mcL Basophils # 0.0 (0.0-0.2) K/mcL PT 17.2 H (9.4-12.1) Seconds INR 1.5 Sodium 132 L (136-145) mEq/L Potassium 3.7 (3.5-5.1) mEq/L Chloride 102 (98-107) mEq/L Carbon Dioxide 25 (23-29) mEq/L BUN 9 (6-20) mg/dL Creatinine 0.79 (0.70-1.30) mg/dL Est GFR ( Amer) > 60 (> 60) Est GFR (Non-Af Amer) > 60 (> 60) BUN/Creatinine Ratio 11 (6-26) Glucose 85 (70-105) mg/dL Calculated Osmolality 272 L (280-300) Calcium 8.6 (8.6-10.3) mg/dL Total Bilirubin 25.4 H (0.3-1.0) mg/dL Direct Bilirubin 15.1 H (0.0-0.2) mg/dL Indirect Bilirubin 10.3 H (0.0-1.2) mg/dL AST 570 H (13-39) Units/L ALT > 500 H (7-52) Units/L Alkaline Phosphatase 188 H (34-104) Units/L Serum Total Protein 7.0 (6.4-8.9) g/dL Albumin 3.3 L (3.5-5.7) g/dL Globulin 3.7 H (2.4-3.5) g/dL Albumin/Globulin Ratio 0.9 L (1.1-2.2) Lipase 33 (11-82) Units/L Attestation Statement - Attestation Attestation: I, Tree Sullivan, examined this patient and my medical decision-making was reviewed with the SURVEY DATA TECHNICIAN/PA/Advanced Practice Nurse/Resident Physician. I agree with the documented findings, disposition and treatment plan as described except to the extent set forth below. 58-year-old male sent to the emergency department by his GI physician for further evaluation of his jaundice. Patient was seen in the emergency department within the past few days and had a significantly elevated bilirubin compared to his previous, he does have a history of hepatitis see. His AST and ALTs were mildly elevated however this is decreased compared to his previous liver enzymes. Patient denies recent IV drug use, he states he obtained his hepatitis C from IV transfusions as a child. Patient denied recent trauma or medication changes. He denied recent febrile illness or significant amounts of nausea or vomiting. Ultrasound of the right upper quadrant on previous visit and today showed gallbladder with mildly edematous wall of 7 mm without evidence of pericholecystic fluid. Laboratory evaluation and imaging pending however patient will likely be admitted for further care and evaluation.
[2018-03-18 19:20] LABS: Bilirubin,Urine Large (Negative); Blood,Urine Negative (Negative); Clarity,Urine Cloudy (Clear); Glucose,Urine (UA) Normal (Normal); Ketones,Urine 15 mg/dL (Negative); Leukocyte Esterase,Urine Moderate (Negative); Nitrite,Urine Positive (Negative); PH,Urine 5.5 pH Units (5.0-8.0); Protein,Urine 30 mg/dL (Neg-Trace); Specific Gravity,Urine 1.027 (1.010-1.025); Urobilinogen,Urine Normal (Normal)
[2018-03-18 19:21] LABS: Color,Urine Brown (Yellow)
[2018-03-18 19:23] LABS: RBC,Urine 0-3 per hpf (0-3)
[2018-03-18 19:24] LABS: Amorphous Sediment,Urine Moderate (Few); Bacteria,Urine Moderate per hpf (None-Few); Mucus,Urine Moderate (Few); WBC,Urine 15-30 per hpf (0-3)
[2018-03-18 20:44] LABS: Hepatitis A Antibody IgM Reactive (Nonreactive); Hepatitis B Core IgM Reactive (Nonreactive); Hepatitis B Surface Antigen Reactive (Nonreactive); Hepatitis C Virus Antibody Reactive (Nonreactive)
--- NOTE | 2018-03-18 20:51 | Internal Med History&Physical ---
<Harish Madsen - Last Filed: 03/18/18 22:47> Date of Encounter: 03/18/18 Time of Encounter: 20:50 Internal Medicine - H&P: HPI Chief complaint: jaundice, abdominal pain Admitted From: Emergency Dept Plans for Post Hospital Care: Home History of present illness: Mr. Mason is a 58 year old male with past medical history of hepatitis C, Guo's esophagus who presents to emergency department with complaint of jaundice and epigastric abdominal pain. He states the pain has been present for approximately 3 weeks and has been worsening since this past Friday. Pain is located in the epigastric region and does not radiate. He describes it as a cramping abdominal pain that is intermittent and is exacerbated with movement. He does admit to occasional nausea but has been eating fairly well. He denies any symptoms of fevers, chills, vomiting, changes in bowel movements. 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 He states he is very transient of these in the past. His hepatitis C was diagnosed approximately one year ago and he has not yet had treatment for it. He does not know the etiology of this but does state he had a transfusion many years ago when he was a child. He denies any association with food as also having no urinary symptoms at this time. He does report neurological deficit after his strokes however does not have any difficulty moving around the house. In the emergency department, vital signs were unremarkable. Laboratory results were however significant for a total bilirubin of 25.4, direct bilirubin 15, indirect 10, AST 570, ALT greater than 500, alkaline phosphatase 188. Urinalysis was obtained and showed possible signs of infections with leukocyte esterase, nitrates, WBCs. CT scan was obtained and showed nonspecific periportal edema with [place] hepatitis and gallbladder wall thickening. Later labs also returned positive for hepatitis A IgM, hepatitis B core igm antibody, hepatitis B surface antigen, hepatitis C antigen. 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 Family history: non Contributory Past Med Surg Social Fam HX - Past Medical History Medical history: arthritis, COPD, CVA, GERD, hepatitis, hyperlipidemia, hypertension, kidney stones, osteoporosis, TIA, other Additional medical history: Hep C Psychiatric history: no psych history, anxiety, depression, prior suicide attempt, previous psychiatric hospitalization, other - Past Surgical History Surgical History: herniorrhaphy, other Additional surgical history: lt foot surgery - Social History Smoking Status: Current every day smoker Smokeless Tobacco Status: No Alcohol use: rarely Drug use: none - Family History Mother Living Status: Hx Family Cardiac Disorders: Yes Brother Living Status: Still Living Hx Family Cancer: Yes Internal Medicine - H&P: Meds Armodafinil [Nuvigil] 250 mg PO DAILY 12/16/16 [History] Gabapentin [Neurontin] 600 mg PO BID 05/29/17 [History] OXcarbazepine [Trileptal] 300 mg PO TID 05/29/17 [History] Omeprazole [PriLOSEC] 20 mg PO DAILY 05/29/17 [History] 3 Allergy/AdvReac Type Severity Reaction Status Date / Time No Known Allergies Allergy Verified 03/18/18 17:38 All Systems PM: A 10-system review of systems was performed and is negative for pertinent findings except as documented above in the HPI. - Constitutional Constitutional: lethargy, malaise, no chills, no fever(s), no weakness - EENT Eyes: as per HPI Additional comments: Scleral icterus - Cardiovascular Cardiovascular ROS IM: no chest pain, no diaphoresis, no dyspnea, no dyspnea on exertion, no edema, no orthopnea - Respiratory Respiratory: no cough, no dyspnea - Gastrointestinal Gastrointestinal: abdominal pain, nausea, no constipation, no diarrhea, no dyspepsia, no dysphagia, no loose stools, no melena, no vomiting - Genitourinary Genitourinary ROS male: no dysuria - Integumentary Integumentary IM: jaundice, no rash - Neurological Neurological ROS: no numbness, no tingling, no weakness - Constitutional Vitals: Temp Pulse Resp BP Pulse Ox 98.4 F 69 18 113/66 96 03/18/18 17:44 03/18/18 20:34 03/18/18 20:34 03/18/18 20:34 03/18/18 20:34 Exam: Gen.: Vitals noted. No acute distress. AAOx3. Extensive jaundice covering the entire body including scleral icterus. Resting comfortably in bed HEENT: PERRL/EOMI, oropharynx clear, Normocephalic, atraumatic, MMM Cardiac: RRR, no murmur, +S1/S2 Pulmonary: CTA bilaterally, no wheezes, rales or rhonchi, equal chest expansion Abdomen: soft, tender in epigastric region, BS noted, no guarding, no rebound. Extremities: no BLE edema, nontender calf, no cyanosis or clubbing Neuro: A&Ox3, moves all extremities, no focal deficits Psych: Appropriate mood and behavior Internal Med - H&P Results - Labs CBC & Chem 7: 03/18/18 17:48 03/18/18 17:48 Labs: Short CBC 03/18/18 Range/Units 17:48 WBC 5.0 (4.3-11.1) K/mcL Hgb 14.4 (12.9-16.9) g/dL Hct 41.2 (37.5-50.1) % Plt Count 228 (140-400) K/mcL Neutrophils # 3.3 (1.6-8.9) K/mcL BMP 03/18/18 17:48 Sodium 132 L Potassium 3.7 Chloride 102 Carbon Dioxide 25 BUN 9 Creatinine 0.79 Glucose 85 Calcium 8.6 Liver Function 03/18/18 Range/Units 17:48 Total Bilirubin 25.4 H (0.3-1.0) mg/dL Direct Bilirubin 15.1 H (0.0-0.2) mg/dL AST 570 H (13-39) Units/L ALT > 500 H (7-52) Units/L Alkaline Phosphatase 188 H (34-104) Units/L Albumin 3.3 L (3.5-5.7) g/dL Urine 03/18/18 Range/Units 18:58 Urine Color Brown (Yellow) Urine Clarity Cloudy A (Clear) Urine pH 5.5 (5.0-8.0) pH Units Ur Specific [place] 1.027 H (1.010-1.025) Urine Protein 30 H (Neg-Trace) mg/dL Urine Glucose (UA) Normal (Normal) mg/dL - Impressions ITS Impressions Abdomen/Pelvis CT 03/18/18 17:23 IMPRESSION: 1. Mild nonspecific periportal edema in the liver and [place] hepatis as well as gallbladder wall thickening. Small calcified gallstone. Acute cholecystitis not excluded. Other considerations include hypervolemia, passive hepatic congestion, hepatitis, and cholangitis. Recommend correlation with serum liver function tests and if clinically indicated further evaluation could be obtained with right upper quadrant ultrasound or HIDA scan. 2. Mildly enlarged nonspecific but likely reactive portacaval and periportal lymphadenopathy. D/ / Sid Mason MD / Sid Mason MD Interpreting Provider: Sid Mason MD - Assessment and plan (1) Transaminitis Current Visit: Yes Status: Acute Assessment and plan: - Secondary to hepatitis A,B,C - Chronic known hepatitis C with acute onset hepatitis A and B. - IgM positive A and B in ED - Etiology unclear, patient denies IVDU, recent transfusion or needles. Possible sexual contact - Patient is having mild abdominal pain, likely related but is eating during interview - Tbili 25, direct 15, indirect 10. - AST 570, ALT >500, ALk phos 188 - CT scan in Ed shows non specific periportal edema, [place] hepatitis, GB wall thickening. Could not rule out Gb disease, however symptoms and labs are more reflective of hepatocellular etiology. RUQ US as outpatient 3 days ago with similar findings. - Has seen GI today, consulted in ED Plan - IVF hydration at 125/hr. NS as he is mildly hyponatremic (132) - Zofran, toradol for supportive care - Trend LFTs - Will order reflex hepatitis labs for AM: quant, eAg, eAb - HIV screen - UDS pending. (2) Jaundice Current Visit: Yes Status: Acute Assessment and plan: secondary to hepatitis - less likely cholecystitis given symptoms and hepatocellular pattern of labs - as above (3) Hypertension Current Visit: Yes Status: Chronic Assessment and plan: We will control this time at 124/73, will continue monitor Qualifiers: Hypertension type: essential hypertension Qualified Code(s): I10 - Essential (primary) hypertension (4) Hx of ischemic multifocal multiple vascular territories stroke Current Visit: Yes Status: Chronic Assessment and plan: Patient reports 3 strokes in a short period of time and was transferred to [facility] He does report some residual neurological deficit however he is able to move around the house without difficulties and without assistance (5) Tobacco use Current Visit: Yes Status: Chronic Assessment and plan: Counseled on smoking cessation, patient is trying to quit. He was offered a nicotine patch and is declining at this time (6) Hepatitis C Current Visit: Yes Status: Acute Assessment and plan: as above no previous treatment patient is uncertain of cause Qualifiers: Viral hepatitis chronicity: chronic Hepatic coma status: without hepatic coma Qualified Code(s): B18.2 - Chronic viral hepatitis C (7) Hyperbilirubinemia Current Visit: Yes Status: Acute Assessment and plan: as above (8) Hepatitis A Current Visit: Yes Status: Acute Assessment and plan: as above Qualifiers: Hepatic coma status: without hepatic coma Qualified Code(s): B15.9 - Hepatitis A without hepatic coma (9) Hepatitis B Current Visit: Yes Status: Acute Assessment and plan: as above Qualifiers: Viral hepatitis chronicity: acute Hepatic coma status: without hepatic coma Hepatitis delta agent presence: without delta-agent Qualified Code(s): B16.9 - Acute hepatitis B without delta-agent and without hepatic coma (10) DVT prophylaxis Current Visit: Yes Status: Acute Assessment and plan: Heparin 5000 units every 12 hours (11) Abnormal urinalysis Current Visit: Yes Status: Acute Assessment and plan: UA in ED shows possible leukocyte esterase, WBCs, nitrites - No epithelial cells reported, possibly contaminated. - Patient is asymptomatic - Will not start abx at this time. - Time Spent With Patient Total time spent is greater than 50% in coordination of care (as documented) at patient's floor/unit and/or counseling patient: Odalis Wang - Last Filed: 03/19/18 00:05> Date of Encounter: 03/18/18 Internal Medicine - H&P: HPI History of present illness: Mr. Mason is a 58 year old male All Systems PM: A 10-system review of systems was performed and is negative for pertinent findings except as documented above in the HPI. - Constitutional Vitals: Temp Pulse Resp BP Pulse Ox 99.0 F 72 16 109/77 94 03/18/18 23:47 03/18/18 23:47 03/18/18 23:47 03/18/18 23:47 03/18/18 23:47 Internal Med - H&P Results - Labs CBC & Chem 7: 03/18/18 17:48 03/18/18 17:48 - Attending Attestation Mr Mason is a 58 year old male with known chronic HCV who presents with abdominal pain, predominantly epigastric, coluria and increasing jaundice for the past week. He was previously evaluated for acute cholecystitis given the abnormal LFTs and findings of pericholecystic fluid, gallladder wall thickening and edema but no cholelithiasis and symptoms not entirely consistent and images not conclusive. He is now admitted for the persistence and worsening of his jaundice. Physical exam was remarkable for a well developed male lying comfortably in bed in NAD, notable generalized jaundice with scleral icterus, mild pain on epigastric deep palpation and minimal in the RUQ. No peripheral edema. No asterixis. He denies etoh and illicit drug use but is an active smoker. Serologies were sent due to our concern for acute viral hepatitis and test confirm both HAV and HBV as new findings in addition to his chronic HCV. We will obtain HBV DNA and assess the eAg/eAb to assess for a state of infectiousness. Symptomatic treatment for now with fluids and pain control with NSAIDs. He will benefit from outpatient GI/hepatology follow up. He was educated on the availability of treatments for HCV to reduce the possible complications of cirrhosis and HCC. He will need continued ultrasound screening as well. HIV testing should be performed. Rest of management per resident's note. - Assessment and plan (1) Hepatitis A Current Visit: Yes Status: Acute Qualifiers: Hepatic coma status: without hepatic coma Qualified Code(s): B15.9 - Hepatitis A without hepatic coma (2) Hepatitis B Current Visit: Yes Status: Acute Qualifiers: Viral hepatitis chronicity: acute Hepatic coma status: without hepatic coma Hepatitis delta agent presence: without delta-agent Qualified Code(s): B16.9 - Acute hepatitis B without delta-agent and without hepatic coma (3) Jaundice Current Visit: Yes Status: Acute (4) Hepatitis C Current Visit: Yes Status: Acute Qualifiers: Viral hepatitis chronicity: chronic Hepatic coma status: without hepatic coma Qualified Code(s): B18.2 - Chronic viral hepatitis C (5) Hyperbilirubinemia Current Visit: Yes Status: Acute (6) Transaminitis Current Visit: Yes Status: Acute (7) Hypertension Current Visit: Yes Status: Chronic Qualifiers: Hypertension type: essential hypertension Qualified Code(s): I10 - Essential (primary) hypertension (8) Hx of ischemic multifocal multiple vascular territories stroke Current Visit: Yes Status: Chronic (9) DVT prophylaxis Current Visit: Yes Status: Acute (10) Tobacco use Current Visit: Yes Status: Chronic (11) Abnormal urinalysis Current Visit: Yes Status: Acute - Time Spent With Patient Total time spent is greater than 50% in coordination of care (as documented) at patient's floor/unit and/or counseling patient:
[2018-03-18] MEDS ORDERED: Naloxone 0.4 MG/ML INJ IVP PRN (21:17)
[2018-03-18] MEDS ORDERED: Ibuprofen 400 MG TABLET PO PRN (21:17)
[2018-03-18] MEDS ORDERED: traMADol 50 MG TABLET PO PRN (21:17)
[2018-03-18] MEDS ORDERED: Ketorolac 15 MG/ML VIAL IVP PRN (21:53)
[2018-03-19] MEDS: 0.9 % Sodium Chloride 1,000 ML IVC SCH ×2 (01:49→10:12)
[2018-03-19 05:06] LABS: Basophils % 0.7 %; Eosinophils # 0.1 K/mcL (0.0-0.6); Eosinophils % 1.4 %; Hematocrit 37.2 % (37.5-50.1); Hemoglobin 13.3 g/dL (12.9-16.9); Immature Granulocytes % 0.7 % (0-4); Lymphocytes # 0.8 K/mcL (0.6-4.6); Lymphocytes % 12.8 %; Mean Corpuscular HGB Conc 35.8 g/dL (31.6-35.5); Mean Corpuscular Hemoglobin 30.4 pg (28.0-33.3); Mean Corpuscular Volume 84.9 fL (83.0-100.0); Mean Platelet Volume 10.9 fL (9.4-12.4); Monocytes # 0.5 K/mcL (0.0-1.3); Monocytes % 9.1 %; Neutrophils # 4.4 K/mcL (1.6-8.9); Platelet Count 202 K/mcL (140-400); Red Blood Count 4.38 M/mcL (4.19-5.50); Red Cell Distribution Width 18.6 % (11.5-14.5); Segmented Neutrophils % 75.3 %
[2018-03-19] MEDS: *HR* Heparin 5,000 UNIT/ML VIAL SQ SCH ×2 (05:21→17:39)
[2018-03-19 05:44] LABS: Alanine Aminotransferase 430 Units/L (7-52); Albumin 2.9 g/dL (3.5-5.7); Albumin/Globulin Ratio 0.9 (1.1-2.2); Alkaline Phosphatase 167 Units/L (34-104); Aspartate Amino Transferase 491 Units/L (13-39); BUN/Creatinine Ratio 13 (6-26); Bilirubin,Total 23.4 mg/dL (0.3-1.0); Blood Urea Nitrogen 9 mg/dL (6-20); Calcium 8.2 mg/dL (8.6-10.3); Carbon Dioxide 23 mEq/L (23-29); Chloride 103 mEq/L (98-107); Globulin 3.2 g/dL (2.4-3.5); Glucose 101 mg/dL (70-105); Osmolality,Calculated 271 (280-300); Potassium 3.9 mEq/L (3.5-5.1); Sodium 131 mEq/L (136-145); Total Protein 6.1 g/dL (6.4-8.9); eGFR For Non-African Americans > 60 (> 60)
[2018-03-19 09:20] LABS: Amphetamine Screen,Urine Negative ng/mL (Cutoff=1000); Barbiturate Screen,Urine Negative ng/mL (Cutoff=200); Benzodiazepines Screen,Urine Negative ng/mL (Cutoff=200); Cannabinoid Screen,Urine Negative ng/mL (Cutoff = 50); Cocaine Screen,Urine Negative ng/mL (Cutoff= 300); Opiate Screen,Urine Negative ng/mL (Cutoff=300); Phencyclidine Screen,Urine Negative ng/mL (Cutoff=25)
[2018-03-19] MEDS: (Armodafinil [Nuvigil] 250 MG) PO SCH (10:20)
[2018-03-19] MEDS: OXcarbazepine 150 MG TABLET PO SCH ×3 (10:26→20:09)
[2018-03-19] MEDS: Gabapentin 300 MG CAPSULE PO SCH ×2 (10:26→20:08)
--- NOTE | 2018-03-19 10:57 | Internal Med Progress Note ---
Hospitalist Progress Note - Encounter Date of Encounter: 03/19/18 Time of Encounter: 10:57 - Subjective Interval History: 58 M being managed for acute on chronic hepatitis He has IGM for Hep B core Ag, Hep A and Hep C He is known Hep C but not on trt Denies recent travels or diarrhea. no change in medications, denies IVDA HIV is negative Stools still pale and urine is dark He denies new complains No surgical intervention at this time - Exam Vitals: Temp Pulse Resp BP Pulse Ox 98.0 F 70 14 118/76 94 03/19/18 07:43 03/19/18 07:43 03/19/18 07:43 03/19/18 07:43 03/19/18 07:43 Exam: General: Patient is alert, no acute distress, oriented x 3 Head: atraumatic, normocephalic, Eye: Sclerae icteric Neck: normal inspection, trachea midline, full ROM, no carotid bruits Respiratory: Good respiratory effort. Normal breath sounds. No wheezing or crackles. Cardiovascular: Regular rate and rhythm. s1 and s2 No clicks, rubs, gallops, or murmurs. No pedal edema Abdomen: Abdomen is soft, mild generalized tenderness, [place] sign negative. Bowel sounds present in all quadrants. Musculoskeletal: Spontaneously moving all extremities Skin: Icteric Neuro: Normal gait. Alert oriented x 3 normal cranial nerves, no focal deficits Psych: Patient's affect is normal - Assessment and Plan (1) Transaminitis Current Visit: Yes Status: Acute Assessment and Plan: Secondary to hepatitis A,B,C Chronic known hepatitis C with acute onset hepatitis A and B. IgM positive A and B in ED Etiology unclear, patient denies IVDU, recent transfusion or needles. Possible sexual contact No abdominal pain at my time of eval Tbili 25, direct 15, indirect 10. AST 570, ALT >500, ALk phos 188 CT scan in Ed shows non specific periportal edema, [place] hepatitis, GB wall thickening. Could not rule out Gb disease, however symptoms and labs are more reflective of hepatocellular etiology. RUQ US as outpatient 3 days ago with similar findings. Continue IV hydration Check INR Continue supportive care GI eval HIV negative Utox negative (2) Hypertension Current Visit: Yes Status: Chronic Assessment and Plan: Not on any meds for blood pressure Continue to monitor (3) Hx of ischemic multifocal multiple vascular territories stroke Current Visit: Yes Status: Chronic Assessment and Plan: Patient reports 3 strokes in a short period of time and was transferred to [facility] He does report some residual neurological deficit however he is able to move around the house without difficulties and without assistance (4) DVT prophylaxis Current Visit: Yes Status: Acute Assessment and Plan: Heparin 5000 units every 12 hours Check INR (5) Tobacco use Current Visit: Yes Status: Chronic Assessment and Plan: Counseled on smoking cessation, patient is trying to quit. He was offered a nicotine patch and is declining at this time (6) Jaundice Current Visit: Yes Status: Acute Assessment and Plan: secondary to hepatitis Unlikely surgical jaundice, Abd CT noted (7) Hepatitis C Current Visit: Yes Status: Acute Assessment and Plan: Acute on chronic GI eval Source unknown, likely sexual, no hx of IVDA (8) Hyperbilirubinemia Current Visit: Yes Status: Acute Assessment and Plan: as in jaundice/tramsaminitis (9) Hepatitis A Current Visit: Yes Status: Acute Assessment and Plan: as in transaminitis, acute, Ig M positive (10) Hepatitis B Current Visit: Yes Status: Acute Assessment and Plan: Acute Hep B with IGM to Hep B core Continue supportive care with IVF Check INR GI eval (11) Abnormal urinalysis Current Visit: Yes Status: Acute Assessment and Plan: Likely due to bilirubunuria, sent for culture by reflex, continue to monitor - Time Spent with Patient Total time spent is greater than 50% in coordination of care (as documented) at patient's floor/unit and/or counseling patient: Plan of Care Discussed with: patient Internal Medicine: Result - Labs CBC & Chem 7: 03/19/18 04:31 03/19/18 04:31 Labs: Short CBC 03/19/18 Range/Units 04:31 WBC 5.9 (4.3-11.1) K/mcL Hgb 13.3 (12.9-16.9) g/dL Hct 37.2 L (37.5-50.1) % Plt Count 202 (140-400) K/mcL Neutrophils # 4.4 (1.6-8.9) K/mcL BMP 03/19/18 04:31 Sodium 131 L Potassium 3.9 Chloride 103 Carbon Dioxide 23 BUN 9 Creatinine 0.71 Glucose 101 Calcium 8.2 L Liver Function 03/19/18 Range/Units 04:31 Total Bilirubin 23.4 H (0.3-1.0) mg/dL AST 491 H (13-39) Units/L ALT 430 H (7-52) Units/L Alkaline Phosphatase 167 H (34-104) Units/L Albumin 2.9 L (3.5-5.7) g/dL - ABG Interpretation ABG results: PT/INR, D-dimer PT 17.2 Seconds (9.4-12.1) H 03/18/18 17:48 Consult Discharge Plan - Plan Referrals: Natali Del Valle [Primary Care Provider] - (2) Hypertension Qualifiers: Hypertension type: essential hypertension Qualified Code(s): I10 - Essential (primary) hypertension (7) Hepatitis C Qualifiers: Viral hepatitis chronicity: chronic Hepatic coma status: without hepatic coma Qualified Code(s): B18.2 - Chronic viral hepatitis C (9) Hepatitis A Qualifiers: Hepatic coma status: without hepatic coma Qualified Code(s): B15.9 - Hepatitis A without hepatic coma (10) Hepatitis B Qualifiers: Viral hepatitis chronicity: acute Hepatic coma status: without hepatic coma Hepatitis delta agent presence: without delta-agent Qualified Code(s): B16.9 - Acute hepatitis B without delta-agent and without hepatic coma
[2018-03-19 13:42] LABS: INR 1.8; Prothrombin Time 20.3 Seconds (9.4-12.1)
--- NOTE | 2018-03-19 13:51 | Gastroenterology Consult Note ---
<HoHe pinon Riccardo - Last Filed: 03/19/18 13:48> Date of Encounter: 03/19/18 Time of Encounter: 11:10 - Assessment and plan (1) Jaundice Current Visit: Yes Status: Acute Assessment and plan: Secondary to Hepatitis. No CBD obstruction noted on imaging. Continue to monitor hepatic panel and PT/INR. (2) Hepatitis A Current Visit: Yes Status: Acute Assessment and plan: Continue to monitor hepatic panel and PT/INR. Will repeat Hepatitis A and B labs in 2 months as outpatient. Qualifiers: Hepatic coma status: without hepatic coma Qualified Code(s): B15.9 - Hepatitis A without hepatic coma (3) Hepatitis B Current Visit: Yes Status: Acute Qualifiers: Viral hepatitis chronicity: acute Hepatic coma status: without hepatic coma Hepatitis delta agent presence: without delta-agent Qualified Code(s): B16.9 - Acute hepatitis B without delta-agent and without hepatic coma (4) Hepatitis C Current Visit: Yes Status: Acute Assessment and plan: Hepatitis C with genotype 1A/1B, viral load 6.9 million on 09/17/2016. Qualifiers: Viral hepatitis chronicity: chronic Hepatic coma status: without hepatic coma Qualified Code(s): B18.2 - Chronic viral hepatitis C (5) Transaminitis Current Visit: Yes Status: Acute Assessment and plan: On admission total bilirubin of 25.4, direct bilirubin 15.1, AST 570, ALT greater than 500, alkaline phosphatase 188. Today TB 23.4, AST 491, ALT 430. Continue to monitor daily. - Time Spent With Patient Total time spent is greater than 50% in coordination of care (as documented) at patient's floor/unit and/or counseling patient: GI History of Present Illness - Data of Consult Patient: known to practice within the last 3 years Consult date: 03/19/18 Requesting Physician: Parag Schmid MD - Consult Narrative Reason for consult: Jaundice History of present illness: Mr. Mason is a 58 year old male with PMHx of Hepatitis C (genotype 1A/1B, viral load 6.9 million 09/17/2016), Guo's esophagus s/p ablation, multiple CVAs who presented to the ED with jaundice and epigastric pain. The epigastric pain has been present for the past 3 weeks, but worsened this past Friday. He denies any fever, chills, chest pain, vomiting, hematemesis, melena, or hematochezia. He was seen by Dr. Mora 03/18 as outpatient and sent to the ED for further evaluation of his jaundice and scleral icterus. His hepatitis C was diagnosed approximately one year ago and he has not yet had treatment for it. On admission total bilirubin of 25.4, direct bilirubin 15.1, AST 570, ALT greater than 500, alkaline phosphatase 188. He tested positive for hepatitis A IgM, hepatitis B core IgM antibody, hepatitis B surface antigen, hepatitis C antibody.CT A/P shows mld nonspecific periportal edema in the liver and [place] hepatis as well as gallbladder wall thickening. He denies any history of IV drug use. Pt admits to risky sexual practices in the past year. He reports eating at [employer] in the last month. Procedures: EGD 01/30/2017 Dr. Mora: Circumferential RFA for Guo's esophagus. EGD 12/16/2016 Dr. Mora: Circumferential RFA for Guo's esophagus. EGD 10/21/2016 Dr. Mora: Medium size hiatal hernia, Guo's esophagus Colonoscopy 10/02/2016 Dr. Mora: Poor prep, repeat one month with 2 day prep. EGD 10/02/2016 Dr. Mora: Small hiatal hernia, Guo's NSAIDs: None Anticoagulation: None Past Med Surg Social Fam HX - Past Medical History Medical history: arthritis, COPD, CVA, GERD, hepatitis, hyperlipidemia, hypertension, kidney stones, osteoporosis, TIA, other Additional medical history: Hep C Psychiatric history: no psych history, anxiety, depression, prior suicide attempt, previous psychiatric hospitalization, other - Past Surgical History Surgical History: herniorrhaphy, other Additional surgical history: lt foot surgery - Social History Smoking Status: Current every day smoker Packs per day: .5 Smokeless Tobacco Status: No Alcohol use: rarely Drug use: none - Family History Mother Living Status: Hx Family Cardiac Disorders: Yes Brother Living Status: Still Living Hx Family Cancer: Yes - Gastrointestinal Gastrointestinal: Present: as per HPI - Constitutional Constitutional: as per HPI - EENT Eyes: as per HPI Ears: Present: as per HPI Nose, mouth and throat: Present: as per HPI - Cardiovascular Cardiovascular ROS: Present: as per HPI - Respiratory Respiratory IM: Present: as per HPI - Genitourinary Genitourinary: Absent: change in color, Urinary frequency - Neurological ROS Neurological GI: Present: as per HPI - Hematologic/Lymphatic Hematologic/Lymphatic pediatric: Present: as per HPI - Musculoskeletal Musculoskeletal ROS GI: Present: as per HPI - Integumentary Integumentary GI: Present: as per HPI - Psychiatric ROS Psychiatric GI: Present: as per HPI - Endocrine Endocrine IM: Present: as per HPI - Constitutional Vitals: Temp Pulse Resp BP Pulse Ox 97.9 F 65 14 120/78 95 03/19/18 11:18 03/19/18 11:18 03/19/18 11:18 03/19/18 11:18 03/19/18 11:18 General appearance: Present: cooperative, A&O X 3, no acute distress, answers questions appropriately - Head Head exam: Present: atraumatic, normocephalic - Eye Eye exam: Present: normal appearance, sclera anicteric - ENT ENT exam: Present: mucous membranes moist - Neck Neck exam general surgery: Present: normal inspection, trachea midline - Respiratory Respiratory exam: Present: rhonchi - Cardiovascular Cardiovascular exam: Present: RRR, +S1, +S2 - GI/Abdominal GI/Abdominal exam: Present: soft, no peritoneal signs. Absent: distended, firm , guarding, tenderness - Rectal Rectal exam: Present: deferred - Extremities Exam Extremities exam: Present: warm - Neurological Exam Neurological exam: Present: no focal deficits - Psychiatric Psychiatric exam: Present: normal affect, normal mood - Skin Skin exam: Present: dry, intact, normal color, warm Results - Labs CBC & Chem 7: 03/19/18 04:31 03/19/18 04:31 Labs: Last Result Calcium 8.2 mg/dL (8.6-10.3) L 03/19/18 04:31 Urine Opiates Screen Negative ng/mL (Leccix=628) 03/18/18 18:58 Entire Visit Hgb 13.3 g/dL (12.9-16.9) 03/19/18 04:31 Hct 37.2 % (37.5-50.1) L 03/19/18 04:31 PT 20.3 Seconds (9.4-12.1) H 03/19/18 13:15 Total Bilirubin 23.4 mg/dL (0.3-1.0) H 03/19/18 04:31 AST 491 Units/L (13-39) H 03/19/18 04:31 ALT 430 Units/L (7-52) H 03/19/18 04:31 Lipase 33 Units/L (11-82) 03/18/18 17:48 - ABG ABG results: PT/INR, D-dimer PT 20.3 Seconds (9.4-12.1) H 03/19/18 13:15 Consult Discharge Plan - Plan Referrals: Natali Del Valle [Primary Care Provider] - <Mile Mora - Last Filed: 03/19/18 21:50> Date of Encounter: 03/19/18 Time of Encounter: 17:30 - Time Spent With Patient Total time spent is greater than 50% in coordination of care (as documented) at patient's floor/unit and/or counseling patient: GI History of Present Illness - Data of Consult Requesting Physician: Parag Schmid MD - Consult Narrative History of present illness: Mr. Mason is a 58 year old male - Constitutional Vitals: Temp Pulse Resp BP Pulse Ox 98.8 F 68 19 103/59 93 03/19/18 20:35 03/19/18 20:35 03/19/18 20:35 03/19/18 20:35 03/19/18 20:35 Results - Labs CBC & Chem 7: 03/19/18 04:31 03/19/18 04:31 Labs: Last Result Calcium 8.2 mg/dL (8.6-10.3) L 03/19/18 04:31 Urine Opiates Screen Negative ng/mL (Vunhak=659) 03/18/18 18:58 Entire Visit Hgb 13.3 g/dL (12.9-16.9) 03/19/18 04:31 Hct 37.2 % (37.5-50.1) L 03/19/18 04:31 PT 20.3 Seconds (9.4-12.1) H 03/19/18 13:15 Total Bilirubin 23.4 mg/dL (0.3-1.0) H 03/19/18 04:31 AST 491 Units/L (13-39) H 03/19/18 04:31 ALT 430 Units/L (7-52) H 03/19/18 04:31 Lipase 33 Units/L (11-82) 03/18/18 17:48 - ABG ABG results: PT/INR, D-dimer PT 20.3 Seconds (9.4-12.1) H 03/19/18 13:15 - Attending Attestation I have personally performed a face to face evaluation on this patient. I have reviewed and agree with the care plan. History and Exam by me shows: Pt seen. On exam has deep jundice. A; Pt with Hx of Hep C now with acute Hep A/B with severe jaundice R: Iv FLuids, heck hep B viral load
[2018-03-20] MEDS: *HR* Heparin 5,000 UNIT/ML VIAL SQ SCH ×2 (05:10→17:44)
[2018-03-20 05:50] LABS: Basophils % 0.8 %; Eosinophils # 0.1 K/mcL (0.0-0.6); Eosinophils % 2.7 %; Hemoglobin 13.3 g/dL (12.9-16.9); Immature Granulocytes % 1.3 % (0-4); Lymphocytes % 21.2 %; Mean Corpuscular Hemoglobin 29.9 pg (28.0-33.3); Mean Corpuscular Volume 85.4 fL (83.0-100.0); Monocytes # 0.4 K/mcL (0.0-1.3); Monocytes % 8.8 %; Neutrophils # 3.1 K/mcL (1.6-8.9); Platelet Count 208 K/mcL (140-400); Red Blood Count 4.45 M/mcL (4.19-5.50); Red Cell Distribution Width 19.2 % (11.5-14.5); Segmented Neutrophils % 65.2 %
[2018-03-20 05:57] LABS: INR 1.6; Prothrombin Time 18.2 Seconds (9.4-12.1)
[2018-03-20 06:46] LABS: Albumin 2.9 g/dL (3.5-5.7); Albumin/Globulin Ratio 0.8 (1.1-2.2); Bilirubin,Direct 13.8 mg/dL (0.0-0.2); Bilirubin,Indirect 9.5 mg/dL (0.0-1.2); Bilirubin,Total 23.3 mg/dL (0.3-1.0); Globulin 3.5 g/dL (2.4-3.5); Total Protein 6.4 g/dL (6.4-8.9)
[2018-03-20 07:18] LABS: Alanine Aminotransferase 408 Units/L (7-52); Albumin 2.9 g/dL (3.5-5.7); Albumin/Globulin Ratio 0.9 (1.1-2.2); Alkaline Phosphatase 170 Units/L (34-104); Aspartate Amino Transferase 513 Units/L (13-39); BUN/Creatinine Ratio 12 (6-26); Bilirubin,Total 23.4 mg/dL (0.3-1.0); Blood Urea Nitrogen 9 mg/dL (6-20); Calcium 8.3 mg/dL (8.6-10.3); Carbon Dioxide 24 mEq/L (23-29); Chloride 105 mEq/L (98-107); Globulin 3.4 g/dL (2.4-3.5); Glucose 95 mg/dL (70-105); Osmolality,Calculated 276 (280-300); Potassium 3.9 mEq/L (3.5-5.1); Sodium 134 mEq/L (136-145); Total Protein 6.3 g/dL (6.4-8.9); eGFR For Non-African Americans > 60 (> 60)
[2018-03-20] MEDS: (Armodafinil [Nuvigil] 250 MG) PO SCH (08:20)
[2018-03-20] MEDS: Gabapentin 300 MG CAPSULE PO SCH ×2 (08:20→21:35)
[2018-03-20] MEDS: OXcarbazepine 150 MG TABLET PO SCH ×3 (08:20→21:40)
--- NOTE | 2018-03-20 10:49 | Internal Med Progress Note ---
Hospitalist Progress Note - Encounter Date of Encounter: 03/20/18 Time of Encounter: 10:49 - Subjective Interval History: 58 M being managed for acute on chronic hepatitis He has IGM for Hep B core Ag, Hep A and Hep C He is known Hep C but not on trt Denies recent travels or diarrhea. no change in medications, denies IVDA HIV is negative Stools still pale and urine is dark He denies new complains No surgical intervention at this time - Exam Vitals: Temp Pulse Resp BP Pulse Ox 98.3 F 79 15 103/67 94 03/20/18 10:19 03/20/18 10:19 03/20/18 10:19 03/20/18 10:19 03/20/18 10:19 Exam: General: Patient is alert, no acute distress, oriented x 3 Head: atraumatic, normocephalic, Eye: Sclerae icteric Neck: normal inspection, trachea midline, full ROM, no carotid bruits Respiratory: Good respiratory effort. Normal breath sounds. No wheezing or crackles. Cardiovascular: Regular rate and rhythm. s1 and s2 No clicks, rubs, gallops, or murmurs. No pedal edema Abdomen: Abdomen is soft, not tender, [place] sign negative. Bowel sounds present in all quadrants. Musculoskeletal: Spontaneously moving all extremities Skin: Icteric Neuro: Normal gait. Alert oriented x 3 normal cranial nerves, no focal deficits Psych: Patient's affect is normal - Assessment and Plan (1) Transaminitis Current Visit: Yes Status: Acute Assessment and Plan: Secondary to hepatitis A,B,C Chronic known hepatitis C with acute onset hepatitis A and B. IgM positive A and B in ED Etiology unclear, patient denies IVDU, recent transfusion or needles. Possible sexual contact No abdominal pain at my time of eval CT scan in Ed shows non specific periportal edema, [place] hepatitis, GB wall thickening. Could not rule out Gb disease, however symptoms and labs are more reflective of hepatocellular etiology. RUQ US as outpatient 3 days ago with similar findings. Continue IV hydration INR improving, 1.8 on arrival Continue supportive care GI eval noted HIV negative Utox negative (2) Hypertension Current Visit: Yes Status: Chronic Assessment and Plan: Not on any meds for blood pressure Continue to monitor (3) Hx of ischemic multifocal multiple vascular territories stroke Current Visit: Yes Status: Chronic Assessment and Plan: No focal deficits at this time (4) DVT prophylaxis Current Visit: Yes Status: Acute Assessment and Plan: Heparin 5000 units every 12 hours Check INR daily (5) Tobacco use Current Visit: Yes Status: Chronic Assessment and Plan: Counseled on smoking cessation, patient is trying to quit. Wants NRT today, he smoked 1/2 PPD (6) Jaundice Current Visit: Yes Status: Acute Assessment and Plan: secondary to hepatitis Unlikely surgical jaundice, Abd CT noted (7) Hepatitis C Current Visit: Yes Status: Acute Assessment and Plan: Acute on chronic GI eval noted, and appreciated Source unknown, likely sexual, no hx of IVDA (8) Hyperbilirubinemia Current Visit: Yes Status: Acute Assessment and Plan: minimally improving as in jaundice/tramsaminitis (9) Hepatitis A Current Visit: Yes Status: Acute Assessment and Plan: as in transaminitis, acute, Ig M positive (10) Hepatitis B Current Visit: Yes Status: Acute Assessment and Plan: Acute Hep B with IGM to Hep B core Continue supportive care with IVF (11) Abnormal urinalysis Current Visit: Yes Status: Acute Assessment and Plan: Likely due to bilirubunuria, urine culture negative - Time Spent with Patient Total time spent is greater than 50% in coordination of care (as documented) at patient's floor/unit and/or counseling patient: Plan of Care Discussed with: patient Internal Medicine: Result - Labs CBC & Chem 7: 03/20/18 05:01 03/20/18 05:01 Labs: Short CBC 03/20/18 Range/Units 05:01 WBC 4.8 (4.3-11.1) K/mcL Hgb 13.3 (12.9-16.9) g/dL Hct 38.0 (37.5-50.1) % Plt Count 208 (140-400) K/mcL Neutrophils # 3.1 (1.6-8.9) K/mcL BMP 03/20/18 05:01 Sodium 134 L Potassium 3.9 Chloride 105 Carbon Dioxide 24 BUN 9 Creatinine 0.78 Glucose 95 Calcium 8.3 L Liver Function 03/20/18 03/20/18 Range/Units 05:01 05:01 Total Bilirubin 23.4 H 23.3 H (0.3-1.0) mg/dL Direct Bilirubin 13.8 H (0.0-0.2) mg/dL AST 513 H 509 H (13-39) Units/L ALT 408 H 407 H (7-52) Units/L Alkaline Phosphatase 170 H 169 H (34-104) Units/L Albumin 2.9 L 2.9 L (3.5-5.7) g/dL - ABG Interpretation ABG results: PT/INR, D-dimer PT 18.2 Seconds (9.4-12.1) H 03/20/18 05:01 - VTE Documentation of Mechanical Device: Intermittent pneumatic compression device Consult Discharge Plan - Plan Referrals: Natali Del Valle [Primary Care Provider] - (2) Hypertension Qualifiers: Hypertension type: essential hypertension Qualified Code(s): I10 - Essential (primary) hypertension (7) Hepatitis C Qualifiers: Viral hepatitis chronicity: chronic Hepatic coma status: without hepatic coma Qualified Code(s): B18.2 - Chronic viral hepatitis C (9) Hepatitis A Qualifiers: Hepatic coma status: without hepatic coma Qualified Code(s): B15.9 - Hepatitis A without hepatic coma (10) Hepatitis B Qualifiers: Viral hepatitis chronicity: acute Hepatic coma status: without hepatic coma Hepatitis delta agent presence: without delta-agent Qualified Code(s): B16.9 - Acute hepatitis B without delta-agent and without hepatic coma
[2018-03-20] MEDS ORDERED: 0.9 % Sodium Chloride 1,000 ML IVC SCH (14:45)
--- NOTE | 2018-03-20 14:54 | Event Note ---
Date of Encounter: 03/20/18 Time of Encounter: 14:00 PT WITH ACUTE HEP A/B with very high bili. Rec: If hep B viral load very elevated then start tenofovir 300mg a day.
[2018-03-20] MEDS: Nicotine 14 MG PATCH.TD24 TD SCH (15:32)
[2018-03-21 04:34] LABS: Basophils # 0.1 K/mcL (0.0-0.2); Basophils % 1.1 %; Eosinophils # 0.1 K/mcL (0.0-0.6); Hematocrit 35.5 % (37.5-50.1); Hemoglobin 12.3 g/dL (12.9-16.9); Immature Granulocytes % 1.7 % (0-4); Lymphocytes # 1.2 K/mcL (0.6-4.6); Lymphocytes % 25.4 %; Mean Corpuscular HGB Conc 34.6 g/dL (31.6-35.5); Mean Corpuscular Volume 86.6 fL (83.0-100.0); Mean Platelet Volume 10.9 fL (9.4-12.4); Monocytes # 0.4 K/mcL (0.0-1.3); Neutrophils # 2.8 K/mcL (1.6-8.9); Platelet Count 212 K/mcL (140-400); Red Cell Distribution Width 19.5 % (11.5-14.5); Segmented Neutrophils % 60.8 %
[2018-03-21 04:39] LABS: INR 1.5; Prothrombin Time 16.7 Seconds (9.4-12.1)
[2018-03-21 05:02] LABS: Alanine Aminotransferase 450 Units/L (7-52); Albumin/Globulin Ratio 0.9 (1.1-2.2); Alkaline Phosphatase 172 Units/L (34-104); Aspartate Amino Transferase 577 Units/L (13-39); BUN/Creatinine Ratio 11 (6-26); Bilirubin,Total 22.1 mg/dL (0.3-1.0); Blood Urea Nitrogen 9 mg/dL (6-20); Calcium 8.6 mg/dL (8.6-10.3); Carbon Dioxide 26 mEq/L (23-29); Chloride 103 mEq/L (98-107); Globulin 3.3 g/dL (2.4-3.5); Glucose 122 mg/dL (70-105); Osmolality,Calculated 276 (280-300); Potassium 3.8 mEq/L (3.5-5.1); Sodium 133 mEq/L (136-145); Total Protein 6.3 g/dL (6.4-8.9); eGFR For Non-African Americans > 60 (> 60)
[2018-03-21 05:18] LABS: Albumin 2.9 g/dL (3.5-5.7); Albumin/Globulin Ratio 0.9 (1.1-2.2); Bilirubin,Direct 12.7 mg/dL (0.0-0.2); Bilirubin,Indirect 8.5 mg/dL (0.0-1.2); Bilirubin,Total 21.2 mg/dL (0.3-1.0); Globulin 3.3 g/dL (2.4-3.5); Total Protein 6.2 g/dL (6.4-8.9)
[2018-03-21] MEDS: *HR* Heparin 5,000 UNIT/ML VIAL SQ SCH ×2 (05:58→17:47)
[2018-03-21] MEDS: Nicotine 14 MG PATCH.TD24 TD SCH (08:58)
[2018-03-21] MEDS: Gabapentin 300 MG CAPSULE PO SCH ×2 (08:58→20:45)
[2018-03-21] MEDS: OXcarbazepine 150 MG TABLET PO SCH ×3 (08:58→20:45)
[2018-03-21] MEDS: (Armodafinil [Nuvigil] 250 MG) PO SCH (08:59)
--- NOTE | 2018-03-21 10:23 | Internal Med Progress Note ---
Hospitalist Progress Note - Encounter Date of Encounter: 03/21/18 Time of Encounter: 10:22 - Subjective Interval History: 58 M being managed for acute on chronic hepatitis He has IGM for Hep B core Ag, Hep A and Hep C He is known Hep C but not on trt Denies recent travels or diarrhea. no change in medications, denies IVDA HIV is negative He is seen this a.m, sitting up in bed, after taking a shower He denies any new complains, no bleeding, urine is still dark He remains jaundiced Liver function test shows stable transaminitis with no significant change in bilirubinemia Per GI, we are awaiting Hep B viral load, to start tenofovir is Hep B viral load is elevated Patient was educated about this plan, and he verbalized understanding - Exam Vitals: Temp Pulse Resp BP Pulse Ox 98.2 F 73 16 115/71 94 03/21/18 06:40 03/21/18 06:40 03/21/18 06:40 03/21/18 06:40 03/21/18 06:40 Exam: General: Patient is alert, no acute distress, oriented x 3 Head: atraumatic, normocephalic, Eye: Sclerae icteric Neck: normal inspection, trachea midline, full ROM, no carotid bruits Respiratory: Good respiratory effort. Normal breath sounds. No wheezing or crackles. Cardiovascular: Regular rate and rhythm. s1 and s2 No clicks, rubs, gallops, or murmurs. No pedal edema Abdomen: Abdomen is soft, not tender, [place] sign negative. Bowel sounds present in all quadrants. Musculoskeletal: Spontaneously moving all extremities Skin: Icteric Neuro: Normal gait. Alert oriented x 3 normal cranial nerves, no focal deficits Psych: Patient's affect is normal - Assessment and Plan (1) Transaminitis Current Visit: Yes Status: Acute Assessment and Plan: Secondary to hepatitis A,B,C Chronic known hepatitis C with acute onset hepatitis A and B. IgM positive A and B in ED Etiology unclear, patient denies IVDU, recent transfusion or needles. Possible sexual contact No abdominal pain at my time of eval CT scan in Ed shows non specific periportal edema, [place] hepatitis, GB wall thickening. Could not rule out Gb disease, however symptoms and labs are more reflective of hepatocellular etiology. RUQ US as outpatient 3 days ago with similar findings. IN 1.8 Continue supportive care GI eval noted-to start tenofovir if viral load is elevated HIV negative Utox negative (2) Hypertension Current Visit: Yes Status: Chronic Assessment and Plan: Not on any meds for blood pressure Blood pressure has been WNL Continue to monitor (3) Hx of ischemic multifocal multiple vascular territories stroke Current Visit: Yes Status: Chronic Assessment and Plan: No focal deficits at this time (4) DVT prophylaxis Current Visit: Yes Status: Acute Assessment and Plan: Heparin 5000 units every 12 hours Check INR daily (5) Tobacco use Current Visit: Yes Status: Chronic Assessment and Plan: Counseled on smoking cessation, patient is trying to quit. Continue NRT (6) Jaundice Current Visit: Yes Status: Acute Assessment and Plan: secondary to hepatitis Unlikely surgical jaundice, Abd CT noted (7) Hepatitis C Current Visit: Yes Status: Chronic Assessment and Plan: Acute on chronic GI eval noted, and appreciated Source unknown, likely sexual, no hx of IVDA (8) Hyperbilirubinemia Current Visit: Yes Status: Acute Assessment and Plan: minimally improving as in jaundice/tramsaminitis (9) Hepatitis A Current Visit: Yes Status: Acute Assessment and Plan: as in transaminitis, acute, Ig M positive (10) Hepatitis B Current Visit: Yes Status: Acute Assessment and Plan: Acute Hep B with IGM to Hep B core Continue supportive care with IVF (11) Abnormal urinalysis Current Visit: Yes Status: Resolved Assessment and Plan: Likely due to bilirubunuria, urine culture negative - Time Spent with Patient Total time spent is greater than 50% in coordination of care (as documented) at patient's floor/unit and/or counseling patient: Plan of Care Discussed with: patient Internal Medicine: Result - Labs CBC & Chem 7: 03/21/18 04:11 03/21/18 04:11 Labs: Short CBC 03/21/18 Range/Units 04:11 WBC 4.6 (4.3-11.1) K/mcL Hgb 12.3 L (12.9-16.9) g/dL Hct 35.5 L (37.5-50.1) % Plt Count 212 (140-400) K/mcL Neutrophils # 2.8 (1.6-8.9) K/mcL BMP 03/21/18 04:11 Sodium 133 L Potassium 3.8 Chloride 103 Carbon Dioxide 26 BUN 9 Creatinine 0.83 Glucose 122 H Calcium 8.6 Liver Function 03/21/18 03/21/18 Range/Units 04:11 04:11 Total Bilirubin 21.2 H 22.1 H (0.3-1.0) mg/dL Direct Bilirubin 12.7 H (0.0-0.2) mg/dL AST 553 H 577 H (13-39) Units/L ALT 421 H 450 H (7-52) Units/L Alkaline Phosphatase 163 H 172 H (34-104) Units/L Albumin 2.9 L 3.0 L (3.5-5.7) g/dL - ABG Interpretation ABG results: PT/INR, D-dimer PT 16.7 Seconds (9.4-12.1) H 03/21/18 04:11 - VTE Documentation of Mechanical Device: Intermittent pneumatic compression device Consult Discharge Plan - Plan Referrals: Natali Del Valle [Primary Care Provider] - (2) Hypertension Qualifiers: Hypertension type: essential hypertension Qualified Code(s): I10 - Essential (primary) hypertension (7) Hepatitis C Qualifiers: Viral hepatitis chronicity: chronic Hepatic coma status: without hepatic coma Qualified Code(s): B18.2 - Chronic viral hepatitis C (9) Hepatitis A Qualifiers: Hepatic coma status: without hepatic coma Qualified Code(s): B15.9 - Hepatitis A without hepatic coma (10) Hepatitis B Qualifiers: Viral hepatitis chronicity: acute Hepatic coma status: without hepatic coma Hepatitis delta agent presence: without delta-agent Qualified Code(s): B16.9 - Acute hepatitis B without delta-agent and without hepatic coma
[2018-03-21 17:00] LABS: HCV Quant Interpretation NOT DETECTED (Not Detected)
[2018-03-22] MEDS: *HR* Heparin 5,000 UNIT/ML VIAL SQ SCH ×2 (05:34→17:34)
[2018-03-22 07:29] LABS: Basophils # 0.1 K/mcL (0.0-0.2); Eosinophils # 0.1 K/mcL (0.0-0.6); Eosinophils % 2.5 %; Hematocrit 37.2 % (37.5-50.1); Hemoglobin 12.8 g/dL (12.9-16.9); Immature Granulocytes % 1.9 % (0-4); Immature Platelets 7.2 % (1.1-6.1); Lymphocytes # 1.1 K/mcL (0.6-4.6); Lymphocytes % 20.3 %; Mean Corpuscular HGB Conc 34.4 g/dL (31.6-35.5); Mean Corpuscular Hemoglobin 29.4 pg (28.0-33.3); Mean Corpuscular Volume 85.3 fL (83.0-100.0); Mean Platelet Volume 11.6 fL (9.4-12.4); Monocytes # 0.5 K/mcL (0.0-1.3); Monocytes % 9.4 %; Neutrophils # 3.4 K/mcL (1.6-8.9); Platelet Count 213 K/mcL (140-400); Red Blood Count 4.36 M/mcL (4.19-5.50); Red Cell Distribution Width 19.6 % (11.5-14.5); Segmented Neutrophils % 64.9 %
[2018-03-22 07:46] LABS: INR 1.3; Prothrombin Time 14.5 Seconds (9.4-12.1)
[2018-03-22 07:56] LABS: Alanine Aminotransferase > 500 Units/L (7-52); Albumin/Globulin Ratio 0.8 (1.1-2.2); Alkaline Phosphatase 181 Units/L (34-104); Aspartate Amino Transferase 667 Units/L (13-39); BUN/Creatinine Ratio 13 (6-26); Bilirubin,Total 20.3 mg/dL (0.3-1.0); Blood Urea Nitrogen 9 mg/dL (6-20); Calcium 8.8 mg/dL (8.6-10.3); Carbon Dioxide 24 mEq/L (23-29); Chloride 101 mEq/L (98-107); Globulin 3.7 g/dL (2.4-3.5); Glucose 101 mg/dL (70-105); Osmolality,Calculated 271 (280-300); Potassium 3.9 mEq/L (3.5-5.1); Sodium 131 mEq/L (136-145); Total Protein 6.7 g/dL (6.4-8.9); eGFR For Non-African Americans > 60 (> 60)
[2018-03-22] MEDS: Nicotine 14 MG PATCH.TD24 TD SCH (08:24)
[2018-03-22] MEDS: Gabapentin 300 MG CAPSULE PO SCH ×2 (08:24→20:47)
[2018-03-22] MEDS: OXcarbazepine 150 MG TABLET PO SCH ×3 (08:24→20:47)
[2018-03-22] MEDS: 0.9 % Sodium Chloride 1,000 ML IVC SCH ×2 (08:26→17:34)
[2018-03-22] MEDS: (Armodafinil [Nuvigil] 250 MG) PO SCH (08:27)
--- NOTE | 2018-03-22 09:35 | Internal Med Progress Note ---
Hospitalist Progress Note - Encounter Date of Encounter: 03/22/18 Time of Encounter: 09:35 - Subjective Interval History: 58 M being managed for acute on chronic hepatitis He has IGM for Hep B core Ag, Hep A and Hep C He is known Hep C but not on trt Denies recent travels or diarrhea. no change in medications, denies IVDA HIV is negative He is seen this a.m, sitting up in bed, after taking a shower He denies any new complains, no bleeding, urine is still dark He remains jaundiced Liver function test shows stable transaminitis with no significant change in bilirubinemia Per GI, we are awaiting Hep B viral load, to start tenofovir is Hep B viral load is elevated Patient was educated about this plan, and he verbalized understanding Indications for treatment includes persistent transaminitis >4 weeks, [place] >10 greater than 4 weeks or Viral load >20,000 in the presence of Hep BeAg Continue supportive care at this time, INR and Chem are WNL - Exam Vitals: Temp Pulse Resp BP Pulse Ox 98.3 F 59 16 112/71 98 03/22/18 06:55 03/22/18 06:55 03/22/18 06:55 03/22/18 06:55 03/22/18 06:55 Exam: General: Patient is alert, no acute distress, oriented x 3 Head: atraumatic, normocephalic, Eye: jaundiced Neck: normal inspection, trachea midline, full ROM, no carotid bruits Respiratory: Good respiratory effort. Normal breath sounds. No wheezing or crackles. Cardiovascular: Regular rate and rhythm. s1 and s2 No clicks, rubs, gallops, or murmurs. No pedal edema Abdomen: Abdomen is soft, not tender, [place] sign negative. Bowel sounds present in all quadrants. Musculoskeletal: Spontaneously moving all extremities Skin: jaundiced Neuro: Normal gait. Alert oriented x 3 normal cranial nerves, no focal deficits Psych: Patient's affect is normal - Assessment and Plan (1) Transaminitis Current Visit: Yes Status: Acute Assessment and Plan: Secondary to acute hepatitis A and B on top of chronic Hep C IgM positive A and B Etiology unclear, patient denies IVDU, recent transfusion or needles. Possible sexual contact No abdominal pain at my time of eval CT scan in Ed shows non specific periportal edema, [place] hepatitis, GB wall thickening. Could not rule out Gb disease, however symptoms and labs are more reflective of hepatocellular etiology. RUQ US as outpatient 3 days ago with similar findings. INR improved from 1.8 to 1.3 Viral load sent and pending Continue supportive care GI eval noted-to start tenofovir if viral load is elevated HIV negative Utox negative Continue IVF hydration (2) Hypertension Current Visit: Yes Status: Chronic Assessment and Plan: Not on any meds for blood pressure Blood pressure has been WNL Continue to monitor (3) Hx of ischemic multifocal multiple vascular territories stroke Current Visit: Yes Status: Chronic Assessment and Plan: No focal deficits at this time (4) DVT prophylaxis Current Visit: Yes Status: Acute Assessment and Plan: Heparin 5000 units every 12 hours Check INR daily (5) Tobacco use Current Visit: Yes Status: Chronic Assessment and Plan: Counseled on smoking cessation, patient is trying to quit. Continue NRT (6) Jaundice Current Visit: Yes Status: Acute Assessment and Plan: secondary to hepatitis Unlikely surgical jaundice, Abd CT noted (7) Hepatitis C Current Visit: Yes Status: Chronic Assessment and Plan: Acute on chronic GI eval noted, and appreciated Source unknown, likely sexual, no hx of IVDA (8) Hyperbilirubinemia Current Visit: Yes Status: Acute Assessment and Plan: minimally improving as in jaundice/tramsaminitis (9) Hepatitis A Current Visit: Yes Status: Acute Assessment and Plan: as in transaminitis, acute, Ig M positive (10) Hepatitis B Current Visit: Yes Status: Acute Assessment and Plan: Acute Hep B with IGM to Hep B core Await viral load Continue supportive care with IVF (11) Abnormal urinalysis Current Visit: Yes Status: Resolved Assessment and Plan: Likely due to bilirubunuria, urine culture negative - Time Spent with Patient Total time spent is greater than 50% in coordination of care (as documented) at patient's floor/unit and/or counseling patient: Plan of Care Discussed with: patient Internal Medicine: Result - Labs CBC & Chem 7: 03/22/18 06:14 03/22/18 06:14 Labs: Short CBC 03/22/18 Range/Units 06:14 WBC 5.2 (4.3-11.1) K/mcL Hgb 12.8 L (12.9-16.9) g/dL Hct 37.2 L (37.5-50.1) % Plt Count 213 (140-400) K/mcL Neutrophils # 3.4 (1.6-8.9) K/mcL BMP 03/22/18 06:14 Sodium 131 L Potassium 3.9 Chloride 101 Carbon Dioxide 24 BUN 9 Creatinine 0.69 L Glucose 101 Calcium 8.8 Liver Function 03/22/18 Range/Units 06:14 Total Bilirubin 20.3 H (0.3-1.0) mg/dL AST 667 H (13-39) Units/L ALT > 500 H (7-52) Units/L Alkaline Phosphatase 181 H (34-104) Units/L Albumin 3.0 L (3.5-5.7) g/dL - ABG Interpretation ABG results: PT/INR, D-dimer PT 14.5 Seconds (9.4-12.1) H 03/22/18 06:14 - VTE Documentation of Mechanical Device: Intermittent pneumatic compression device Consult Discharge Plan - Plan Referrals: Natali Del Valle [Primary Care Provider] - (2) Hypertension Qualifiers: Hypertension type: essential hypertension Qualified Code(s): I10 - Essential (primary) hypertension (7) Hepatitis C Qualifiers: Viral hepatitis chronicity: chronic Hepatic coma status: without hepatic coma Qualified Code(s): B18.2 - Chronic viral hepatitis C (9) Hepatitis A Qualifiers: Hepatic coma status: without hepatic coma Qualified Code(s): B15.9 - Hepatitis A without hepatic coma (10) Hepatitis B Qualifiers: Viral hepatitis chronicity: acute Hepatic coma status: without hepatic coma Hepatitis delta agent presence: without delta-agent Qualified Code(s): B16.9 - Acute hepatitis B without delta-agent and without hepatic coma
[2018-03-22 13:23] LABS: Hepatitis Be Antibody NEGATIVE (Negative)
[2018-03-23] MEDS: 0.9 % Sodium Chloride 1,000 ML IVC SCH ×2 (05:00→14:06)
[2018-03-23] MEDS: *HR* Heparin 5,000 UNIT/ML VIAL SQ SCH ×2 (05:01→17:19)
[2018-03-23 05:18] LABS: Basophils # 0.1 K/mcL (0.0-0.2); Eosinophils # 0.2 K/mcL (0.0-0.6); Eosinophils % 2.6 %; Hematocrit 36.6 % (37.5-50.1); Hemoglobin 12.6 g/dL (12.9-16.9); Immature Granulocytes % 1.4 % (0-4); Lymphocytes # 1.3 K/mcL (0.6-4.6); Lymphocytes % 22.3 %; Mean Corpuscular HGB Conc 34.4 g/dL (31.6-35.5); Mean Corpuscular Hemoglobin 29.8 pg (28.0-33.3); Mean Corpuscular Volume 86.5 fL (83.0-100.0); Mean Platelet Volume 10.6 fL (9.4-12.4); Monocytes # 0.5 K/mcL (0.0-1.3); Neutrophils # 3.7 K/mcL (1.6-8.9); Platelet Count 209 K/mcL (140-400); Red Blood Count 4.23 M/mcL (4.19-5.50); Red Cell Distribution Width 19.8 % (11.5-14.5); Segmented Neutrophils % 63.7 %
[2018-03-23 05:43] LABS: Alanine Aminotransferase > 500 Units/L (7-52); Albumin 3.1 g/dL (3.5-5.7); Albumin/Globulin Ratio 0.8 (1.1-2.2); Alkaline Phosphatase 181 Units/L (34-104); Aspartate Amino Transferase 674 Units/L (13-39); BUN/Creatinine Ratio 14 (6-26); Bilirubin,Total 17.9 mg/dL (0.3-1.0); Blood Urea Nitrogen 10 mg/dL (6-20); Calcium 8.8 mg/dL (8.6-10.3); Carbon Dioxide 25 mEq/L (23-29); Chloride 102 mEq/L (98-107); Globulin 3.7 g/dL (2.4-3.5); Glucose 103 mg/dL (70-105); Osmolality,Calculated 273 (280-300); Potassium 4.1 mEq/L (3.5-5.1); Sodium 132 mEq/L (136-145); Total Protein 6.8 g/dL (6.4-8.9); eGFR For Non-African Americans > 60 (> 60)
[2018-03-23 08:57] LABS: Hepatitis Be Antigen POSITIVE (Negative)
[2018-03-23] MEDS: Nicotine 14 MG PATCH.TD24 TD SCH (09:29)
[2018-03-23] MEDS: Gabapentin 300 MG CAPSULE PO SCH ×2 (09:29→21:14)
[2018-03-23] MEDS: OXcarbazepine 150 MG TABLET PO SCH ×3 (09:29→21:14)
[2018-03-23] MEDS: (Armodafinil [Nuvigil] 250 MG) PO SCH (09:30)
--- NOTE | 2018-03-23 10:46 | Internal Med Progress Note ---
Hospitalist Progress Note - Encounter Date of Encounter: 03/23/18 Time of Encounter: 10:46 - Exam Vitals: Temp Pulse Resp BP Pulse Ox 98.1 F 67 16 105/71 94 03/23/18 10:35 03/23/18 10:35 03/23/18 10:35 03/23/18 10:35 03/23/18 10:35 Exam: General: NAD, AAOx3 Head: atraumatic, normocephalic, Eye: jaundiced Respiratory: Good respiratory effort. Normal breath sounds. No wheezing or crackles. Cardiovascular: Regular rate and rhythm. Abdomen: Abdomen is soft, not tender, [place] sign negative. Bowel sounds present in all quadrants. Musculoskeletal: Spontaneously moving all extremities Skin: jaundiced Neuro: Normal gait. Alert oriented x 3 normal cranial nerves, no focal deficits - Assessment and Plan (1) Hepatitis B Current Visit: Yes Status: Acute Assessment and Plan: Acute Hep B with IGM to Hep B core Await viral load Continue supportive care with IVF (2) Hypertension Current Visit: Yes Status: Chronic Assessment and Plan: Not on any meds for blood pressure Blood pressure has been WNL Continue to monitor (3) Hx of ischemic multifocal multiple vascular territories stroke Current Visit: Yes Status: Chronic Assessment and Plan: No focal deficits (4) Tobacco use Current Visit: Yes Status: Chronic Assessment and Plan: Counseled on smoking cessation, patient is trying to quit. Continue NRT (5) Jaundice Current Visit: Yes Status: Acute (6) Hepatitis C Current Visit: Yes Status: Inactive (7) Hyperbilirubinemia Current Visit: Yes Status: Acute (8) Transaminitis Current Visit: Yes Status: Acute (9) Hepatitis A Current Visit: Yes Status: Acute (10) Abnormal urinalysis Current Visit: Yes Status: Resolved Assessment and Plan: Likely due to bilirubunuria, urine culture negative (11) DVT prophylaxis Current Visit: Yes Status: Acute Assessment and Plan: Heparin 5000 units every 12 hours Check INR daily - Time Spent with Patient Total time spent is greater than 50% in coordination of care (as documented) at patient's floor/unit and/or counseling patient: Internal Medicine: Result - Labs CBC & Chem 7: 03/23/18 05:09 03/23/18 05:09 Labs: Short CBC 03/23/18 Range/Units 05:09 WBC 5.8 (4.3-11.1) K/mcL Hgb 12.6 L (12.9-16.9) g/dL Hct 36.6 L (37.5-50.1) % Plt Count 209 (140-400) K/mcL Neutrophils # 3.7 (1.6-8.9) K/mcL BMP 03/23/18 05:09 Sodium 132 L Potassium 4.1 Chloride 102 Carbon Dioxide 25 BUN 10 Creatinine 0.71 Glucose 103 Calcium 8.8 Liver Function 03/23/18 Range/Units 05:09 Total Bilirubin 17.9 H (0.3-1.0) mg/dL AST 674 H (13-39) Units/L ALT > 500 H (7-52) Units/L Alkaline Phosphatase 181 H (34-104) Units/L Albumin 3.1 L (3.5-5.7) g/dL - ABG Interpretation ABG results: PT/INR, D-dimer PT 14.5 Seconds (9.4-12.1) H 03/22/18 06:14 - VTE Documentation of Mechanical Device: Intermittent pneumatic compression device Consult Discharge Plan - Plan Referrals: Natali Del Valle [Primary Care Provider] - (1) Hepatitis B Qualifiers: Viral hepatitis chronicity: acute Hepatic coma status: without hepatic coma Hepatitis delta agent presence: without delta-agent Qualified Code(s): B16.9 - Acute hepatitis B without delta-agent and without hepatic coma (2) Hypertension Qualifiers: Hypertension type: essential hypertension Qualified Code(s): I10 - Essential (primary) hypertension (6) Hepatitis C Qualifiers: Viral hepatitis chronicity: chronic Hepatic coma status: without hepatic coma Qualified Code(s): B18.2 - Chronic viral hepatitis C (9) Hepatitis A Qualifiers: Hepatic coma status: without hepatic coma Qualified Code(s): B15.9 - Hepatitis A without hepatic coma
[2018-03-23 13:36] LABS: HBV Quant Interpretation DETECTED (Not Detected); HBV Quant Log by PCR 6.3 log IU
[2018-03-24 05:28] LABS: Basophils % 0.8 %; Eosinophils # 0.2 K/mcL (0.0-0.6); Eosinophils % 3.1 %; Hematocrit 34.9 % (37.5-50.1); Hemoglobin 12.2 g/dL (12.9-16.9); Lymphocytes % 20.5 %; Mean Corpuscular Hemoglobin 30.4 pg (28.0-33.3); Mean Platelet Volume 11.2 fL (9.4-12.4); Monocytes # 0.5 K/mcL (0.0-1.3); Monocytes % 9.2 %; Neutrophils # 3.2 K/mcL (1.6-8.9); Platelet Count 211 K/mcL (140-400); Red Blood Count 4.01 M/mcL (4.19-5.50); Red Cell Distribution Width 19.8 % (11.5-14.5); Segmented Neutrophils % 65.4 %
[2018-03-24 05:44] LABS: Alanine Aminotransferase > 500 Units/L (7-52); Albumin 2.9 g/dL (3.5-5.7); Albumin/Globulin Ratio 0.9 (1.1-2.2); Alkaline Phosphatase 169 Units/L (34-104); Aspartate Amino Transferase 724 Units/L (13-39); BUN/Creatinine Ratio 14 (6-26); Bilirubin,Total 13.3 mg/dL (0.3-1.0); Blood Urea Nitrogen 10 mg/dL (6-20); Calcium 8.6 mg/dL (8.6-10.3); Carbon Dioxide 24 mEq/L (23-29); Chloride 102 mEq/L (98-107); Globulin 3.3 g/dL (2.4-3.5); Glucose 101 mg/dL (70-105); Osmolality,Calculated 273 (280-300); Potassium 3.8 mEq/L (3.5-5.1); Sodium 132 mEq/L (136-145); Total Protein 6.2 g/dL (6.4-8.9); eGFR For Non-African Americans > 60 (> 60)
[2018-03-24] MEDS: *HR* Heparin 5,000 UNIT/ML VIAL SQ SCH ×2 (05:59→17:36)
[2018-03-24 07:28] LABS: HBV Quant Interpretation DETECTED (Not Detected); HBV Quant Log by PCR 6.1 log IU
[2018-03-24] MEDS: Nicotine 14 MG PATCH.TD24 TD SCH (09:16)
[2018-03-24] MEDS: Gabapentin 300 MG CAPSULE PO SCH ×2 (09:21→21:22)
[2018-03-24] MEDS: OXcarbazepine 150 MG TABLET PO SCH ×3 (09:22→21:22)
--- NOTE | 2018-03-24 20:22 | Internal Med Progress Note ---
Hospitalist Progress Note - Encounter Date of Encounter: 03/24/18 Time of Encounter: 20:20 - Subjective Interval History: Patient seen and evaluated at bedside. He admits doing well, tolerating PO intake, denies itching, nausea, vomiting or abdominal pain. Also denies chest pain, SOB. - Exam Vitals: Temp Pulse Resp BP Pulse Ox 97.9 F 67 15 112/69 96 03/24/18 19:37 03/24/18 19:37 03/24/18 19:37 03/24/18 19:37 03/24/18 19:37 Exam: General: Alert and oriented Skin: generalized icterus, no rash, no lesions. HEENT: EOM, pupils equal, round and reactive. scleral icterus Cardiovascular:Normal S1 & S2, no rubs, murmurs or gallops. No JVD. Pulse regular. Lungs:Normal breath sounds, no wheezes or crackles. Abdomen:Soft, non-tender, no rigidity. Extremities:No deformity, no edema or tenderness, no joint swelling or clubbing. Neurological:Normal cognition and motor skills. - Assessment and Plan (1) Hepatitis B Current Visit: Yes Status: Acute Assessment and Plan: Hepatitis B with elevated Viral load Plan: - Trend LFT - Discussed with GI recommended symptomatic treatment for now and outpatient referral for treatment if persist (2) Hypertension Current Visit: Yes Status: Chronic Assessment and Plan: BP well controlled Plan: - No need for antihypertensive medications at this moment - Will continue to monitor (3) Hx of ischemic multifocal multiple vascular territories stroke Current Visit: Yes Status: Chronic Assessment and Plan: Associated with Seizures Plan: - Will continue Oxcarbazepine 300mg PO TID - No statin due to acute hepatitis (4) Hepatitis C Current Visit: Yes Status: Inactive Assessment and Plan: Plan: - Outpatient f/u with GI for possible treatment (5) Hyperbilirubinemia Current Visit: Yes Status: Acute Assessment and Plan: Due to Acute Hepatitis Plan: - Symptomatic treatment - Avoid hepatotoxic medications (6) Transaminitis Current Visit: Yes Status: Acute Assessment and Plan: Secondary to acute Hepatitis A and Hep B Plan: - Symptomatic treatment - If LFT trending down tomorrow will discuss with GI regarding DC planning (7) Hepatitis A Current Visit: Yes Status: Acute Assessment and Plan: Plan - Symptomatic treatment as per GI recommendations (8) Abnormal urinalysis Current Visit: Yes Status: Resolved Assessment and Plan: Plan: - Patient asymptomatic - WIll consider antibiotics if patient reports symptoms related to a UTI (9) DVT prophylaxis Current Visit: Yes Status: Acute Assessment and Plan: Plan: - Chemical DVT prophylaxis with Heparin 5000 units SubQ Q12HR - Time Spent with Patient Total time spent is greater than 50% in coordination of care (as documented) at patient's floor/unit and/or counseling patient: Greater than 35 minutes Plan of Care Discussed with: patient Internal Medicine: Result - Labs CBC & Chem 7: 03/24/18 04:58 03/24/18 04:58 Labs: Short CBC 03/24/18 Range/Units 04:58 WBC 4.9 (4.3-11.1) K/mcL Hgb 12.2 L (12.9-16.9) g/dL Hct 34.9 L (37.5-50.1) % Plt Count 211 (140-400) K/mcL Neutrophils # 3.2 (1.6-8.9) K/mcL BMP 03/24/18 04:58 Sodium 132 L Potassium 3.8 Chloride 102 Carbon Dioxide 24 BUN 10 Creatinine 0.69 L Glucose 101 Calcium 8.6 Liver Function 03/24/18 Range/Units 04:58 Total Bilirubin 13.3 H (0.3-1.0) mg/dL AST 724 H (13-39) Units/L ALT > 500 H (7-52) Units/L Alkaline Phosphatase 169 H (34-104) Units/L Albumin 2.9 L (3.5-5.7) g/dL - ABG Interpretation ABG results: PT/INR, D-dimer PT 14.5 Seconds (9.4-12.1) H 03/22/18 06:14 - VTE Documentation of Mechanical Device: Intermittent pneumatic compression device Consult Discharge Plan - Plan Referrals: Natali Del Valle [Primary Care Provider] - (1) Hepatitis B Qualifiers: Viral hepatitis chronicity: acute Hepatic coma status: without hepatic coma Hepatitis delta agent presence: without delta-agent Qualified Code(s): B16.9 - Acute hepatitis B without delta-agent and without hepatic coma (2) Hypertension Qualifiers: Hypertension type: essential hypertension Qualified Code(s): I10 - Essential (primary) hypertension (4) Hepatitis C Qualifiers: Viral hepatitis chronicity: chronic Hepatic coma status: without hepatic coma Qualified Code(s): B18.2 - Chronic viral hepatitis C (7) Hepatitis A Qualifiers: Hepatic coma status: without hepatic coma Qualified Code(s): B15.9 - Hepatitis A without hepatic coma
[2018-03-25] MEDS: *HR* Heparin 5,000 UNIT/ML VIAL SQ SCH (05:45)
[2018-03-25 06:43] LABS: INR 1.1
[2018-03-25 06:53] LABS: Alanine Aminotransferase > 500 Units/L (7-52); Albumin 3.2 g/dL (3.5-5.7); Albumin/Globulin Ratio 0.8 (1.1-2.2); Alkaline Phosphatase 186 Units/L (34-104); Aspartate Amino Transferase 700 Units/L (13-39); Bilirubin,Direct 5.1 mg/dL (0.0-0.2); Bilirubin,Indirect 5.9 mg/dL (0.0-1.2); Globulin 3.8 g/dL (2.4-3.5)
[2018-03-25] MEDS: OXcarbazepine 150 MG TABLET PO SCH (09:26)
[2018-03-25] MEDS: Nicotine 14 MG PATCH.TD24 TD SCH (09:27)
[2018-03-25] MEDS: Gabapentin 300 MG CAPSULE PO SCH (09:27)
--- NOTE | 2018-03-25 10:19 | Discharge Summary ---
- NOTES TO OUTPATIENT PROVIDER Notes to Outpatient Provider: GI follow-up within week. Needs follow-up on liver function tests Orders not resulted at time of discharge: Pending orders 03/24/18 16:30 Hepatitis Delta Antigen Routine Date of Encounter: 03/25/18 Time of Encounter: 10:17 - Discharge Diagnosis (1) Hepatitis B Priority: Primary Status: Acute Qualifiers: Viral hepatitis chronicity: acute Hepatic coma status: without hepatic coma Hepatitis delta agent presence: without delta-agent Qualified Code(s): B16.9 - Acute hepatitis B without delta-agent and without hepatic coma (2) Hypertension Priority: Secondary Status: Chronic Qualifiers: Hypertension type: essential hypertension Qualified Code(s): I10 - Essential (primary) hypertension (3) Hx of ischemic multifocal multiple vascular territories stroke Priority: Secondary Status: Chronic (4) Hyperbilirubinemia Priority: Secondary Status: Acute (5) Transaminitis Priority: Secondary Status: Acute (6) Hepatitis A Priority: Secondary Status: Acute Qualifiers: Hepatic coma status: without hepatic coma Qualified Code(s): B15.9 - Hepatitis A without hepatic coma (7) Hepatitis C Priority: Secondary Status: Ruled-out Qualifiers: Viral hepatitis chronicity: chronic Hepatic coma status: without hepatic coma Qualified Code(s): B18.2 - Chronic viral hepatitis C (8) DVT prophylaxis Priority: Secondary Status: Acute Hospital course: Mr. Mason is a 58 year old male past medical history of JANNA, multiple CVAs resulting seizures, and Guo's esophagus patient presented to the hospital complaining of jaundice and epigastric abdominal pain. As part of the workup patient found to have elevated liver enzymes and hyperbilirubinemia, hepatitis panel came back positive for acute hepatitis A and hepatitis B. Hep B viral load of 2,200,000. GI involved the case, DR. ENRIQUE group recommended to treat patient symptomatically. Liver function tests have been trending down and patient has been tolerating intake by mouth well. Patient evaluated today bedside, he reports doing well denies abdominal pain, nausea and vomiting, chest pain, shortness of breath. Denies itching, blood in the stool or in the unit. Today I discussed patient with the GI team and they agreed on discharging the patient home and following up with them within a week. GI will decide in the outpatient setting when the hep B needs to be treated or not. Discharge discussed with: patient, nurse - Time Spent with Patient Total time spent providing and/or coordinating discharge services: Greater than 30 minutes - Discharge Medications Home Medications: Armodafinil [Nuvigil] 250 mg PO DAILY 12/16/16 [History] Gabapentin [Neurontin] 600 mg PO BID 05/29/17 [History] OXcarbazepine [Trileptal] 300 mg PO TID 05/29/17 [History] Omeprazole [PriLOSEC] 20 mg PO DAILY 05/29/17 [History] Allergies/Adverse Reactions: 3 Allergy/AdvReac Type Severity Reaction Status Date / Time No Known Allergies Allergy Verified 03/18/18 17:38 Date of admission: 03/19/18 00:47 Primary care physician: Natali Del Valle - Constitutional Vitals: Temp Pulse Resp BP Pulse Ox 97.6 F 67 15 107/70 94 03/25/18 04:56 03/25/18 04:56 03/25/18 04:56 03/25/18 04:56 03/25/18 08:30 Exam: General: Alert and oriented Skin: generalized jaundice, no rash, no lesions. HEENT: EOM, pupils equal, round and reactive. scleral icterus Cardiovascular: Normal S1 & S2, no rubs, murmurs or gallops. No JVD. Pulse regular. Lungs: Normal breath sounds, no wheezes or crackles. Abdomen: Soft, non-tender, no rigidity. Extremities: No deformity, no edema or tenderness, no joint swelling or clubbing. Neurological: Normal cognition and motor skills. - Patient Status Disposition: Home, Self-Care Condition: Good Functional capacity at discharge: independent ambulation Overall status at discharge: patient is progressing back to baseline - Discharge Instructions Follow Up With: Natali Del Valle [Primary Care Provider] - - Diet and Activity Activity: increase activity as tolerated Diet: advance to your usual diet - VTE Documentation of Mechanical Device: Intermittent pneumatic compression device
[2018-03-25 11:12] VITALS: BP 115/73
--- NOTE | 2018-03-25 13:32 | Physician Discharge Referral ---
Home Health/Hosp Referral Info Transfer to: Home Health - Diagnosis (1) Hepatitis B Status: Acute (2) Hypertension Priority: Secondary Status: Chronic (3) Hx of ischemic multifocal multiple vascular territories stroke Priority: Secondary Status: Chronic (4) Hyperbilirubinemia Priority: Secondary Status: Acute (5) Transaminitis Priority: Secondary Status: Acute (6) Hepatitis A Priority: Secondary Status: Acute (7) Hepatitis C Priority: Secondary Status: Ruled-out (8) DVT prophylaxis Priority: Secondary Status: Acute - Respiratory Orders None Smoking Cessation: Smoking cessation has been advised. For more information, call the [place] Tobacco Quit Line at 8-001-EHHU-NOW. - Diet/Nutrition Diet/Nutrition Orders: Regular - Activity Activity Orders: Ambulate - Services Needed Following services are medically necessary services: Nursing, Home Health Aide, Physical Therapy - Transfer Medications Home Medications: Armodafinil [Nuvigil] 250 mg PO DAILY 12/16/16 [History] Gabapentin [Neurontin] 600 mg PO BID 05/29/17 [History] OXcarbazepine [Trileptal] 300 mg PO TID 05/29/17 [History] Omeprazole [PriLOSEC] 20 mg PO DAILY 05/29/17 [History] Allergies/Adverse Reactions: 3 Allergy/AdvReac Type Severity Reaction Status Date / Time No Known Allergies Allergy Verified 03/18/18 17:38 Certification: Further, I certify that my clinical findings support that this patient is homebound (i.e. absences from home require considerable and taxing effort and are for medical reasons or adventist services or infrequently or short duration when for other reasons) because: Homebound Reason: Patient requires assistance of a person or device to safely leave home Attestation: My signature below is to certify that this patient is under my care and that I, or nurse practitioner, or a physician's travel assistant working with me, has a face-to -face encounter with this patient.
== END 2018-03-25 15:13 | disposition home health service (06) | DRG 443 ==
LOC: EMEROOARM 17:18 → 3ANU 17:18 → SUATTDRO 03-19 00:47
PROVIDERS: ADMIT Internal Medicine; ATTEND Internal Medicine